=== PATIENT | male | born 1995 | race Caucasian/White ===

== ENCOUNTER 2016-07-11 01:18 | Emergency (ER) | payer SELFPAY ==
[~2016-07-11 01:18] MED LIST: AUGM875T27 PO; IBUP80TA PO; PERCOCET PO; TYLE325T5 PO
[2016-07-11] MEDS ORDERED: ONDANSETRON 4 MG ORAL DISINTEGRATING TAB (S0181) As Ordered ONE (02:20)
[2016-07-11] MEDS ORDERED: AUGMENTIN 875 MG TAB As Ordered ONE (02:20)
[2016-07-11] MEDS ORDERED: NORCO 5/325MG TABLET (BULK) As Ordered ONE (02:21)
--- NOTE | 2016-07-11 02:35 | EDDOCDS ---
[facility]: Ricardo Potter Age: 21 yrs Sex: Male : 1995 Arrival Date: 07/11/2016 Time: 01:18 Bed TR1 Private MD: Disposition: 07/11/16 02:16 Discharged to Home/Self Care. Impression: Dental caries. - Condition is Stable. - Discharge Instructions: Dental Pain. - Prescriptions for Augmentin 875- 125 mg Oral Tablet - take 1 tablet by ORAL route every 12 hours for 10 days; 20 tablet. Ibuprofen 800 mg Oral Tablet - take 1 tablet by ORAL route every 8 hours As needed take with food; 30 tablet. [place] 5- 325 mg Oral Tablet - take 1 tablet by ORAL route every 6 hours As needed MDD: 4 tabs; 6 tablet. - Medication Reconciliation, Local Pharmacy Hours form. - Follow up: Private Physician; When: Call to arrange an appointment; Reason: Recheck today's complaints, Continuance of care. Follow up: Emergency Department; When: As needed; Reason: Fever > 102F, Trouble breathing, Worsening of conditions. - Problem is new. - Symptoms have improved. Historical: - Allergies: No known drug Allergies; - Home Meds: 1. none - PMHx: none; - PSHx: Appendectomy; Tonsillectomy; - Social history: Smoking status: Patient uses tobacco products, current every day smoker. No barriers to communication noted, The patient speaks fluent Burmese. - Family history: Not pertinent. - : The pt / caregiver states he / she is not on anticoagulants. Home medication list is obtained from the patient. - Exposure Risk Screening:: None identified. Vital Signs: 07/11 01:31 BP 178 / 103 LA Sitting (auto/); Pulse 97; Resp 18 S; Temp 98.9(TE); Pulse Ox 97% on af2 R/A; Weight 90.72 kg / 200 lbs (R); Height 5 ft. 11 in. (180.34 cm) (R); Pain 10/10; 02:31 BP 159 / 89; Pulse 86; Resp 16; Temp 97.7(TE); Pulse Ox 96% on R/A; Pain 10/10; rw1 01:31 Body Mass Index 27.89 (90.72 kg, 180.34 cm) af2 MDM: 02:15 Amoxicillin-Clavulanate 875 mg 1 tabs PO once ordered. ar2 02:15 Ondansetron ODT Oral Disintegrating Tablet 4 mg PO once ordered. ar2 02:15 HYDROcodone-acetaminophen 4 pack- 5 mg-325 mg 1 packets PO Per package directions; ar2 Dispense with patient. 1 po q4h prn for pain ordered. 02:33 Financial registration complete. hs2 Administered Medications: 02:30 Drug: Amoxicillin-Clavulanate 1 tabs [amoxicillin 875 mg-potassium clavulanate 125 mg rw1 tablet (1 tabs)] Route: PO; 02:31 Follow up: Response: Pt left department before re-evaluation is appropriate rw1 02:30 Drug: Ondansetron ODT 4 mg [ondansetron 4 mg disintegrating tablet (1 tabs)] Route: PO; rw1 02:31 Follow up: Response: Pt left department before re-evaluation is appropriate rw1 02:30 Drug: HYDROcodone-acetaminophen 4 pack- 1 packets [hydrocodone 5 mg-acetaminophen 325 rw1 mg tablet (1 tabs)] {Co-Signature: guru (Carlos Alberto Vera RN).} Route: PO; 02:31 Follow up: Response: Med's dispensed home rw1 Signatures: Maurice De Oliveira LPN LPN rw1 Russel Flowers, ROSA M PAJuan ar2 Mirna Dickens,RN RN af2 Mary Jane Francisco, Reg Reg hs2 Carlos Alberto garvey MTDD
--- NOTE | 2016-07-11 02:35 | EDDOCDS ---
Nurse's Notes [facility] Name: Ricardo Potter Age: 21 yrs Sex: Male : 1995 Arrival Date: 07/11/2016 Time: 01:18 Bed TR1 Private MD: Diagnosis: Dental caries Presentation: 07/11 01:33 Presenting complaint: Patient states: toothache to right bottom side of mouth. Adult af2 Sepsis Screening: The patient does not have new or worsening altered mentation. Patient's respiratory rate is less than 22. Systolic blood pressure is greater than 100. Patient has a qSOFA score of 0- Negative Sepsis Screen. Suicide/Homicide risk assessment- the patient denies having any suicidal and/or homicidal ideations and does not present with any other emotional, behavioral or mental health complaints. Status: Patient is not a director of women's services or dependent. Transition of care: patient was not received from another setting of care. 01:33 Acuity: CHARMAINE Level 5 af2 01:33 Method Of Arrival: Walkin/Carried/Asstd af2 Triage Assessment: 01:34 General: Appears in no apparent distress, Behavior is cooperative. Pain: Location: face af2 Pain currently is 10 out of 10 on a pain scale. HIV screening NA for this visit Offered previously. EENT: Reports pain right side of face. Historical: - Allergies: No known drug Allergies; - Home Meds: 1. none - PMHx: none; - PSHx: Appendectomy; Tonsillectomy; - Social history: Smoking status: Patient uses tobacco products, current every day smoker. No barriers to communication noted, The patient speaks fluent Greenlandic. - Family history: Not pertinent. - : The pt / caregiver states he / she is not on anticoagulants. Home medication list is obtained from the patient. - Exposure Risk Screening:: None identified. Screenin:31 Screening information is obtained from the patient. Fall risk: No risks identified. rw1 Assistance ADL's: requires no assistance with activities of daily living. Abuse/DV Screen: The patient / caregiver reports he/she is: not in a situation that causes fear, pain or injury. Nutritional screening: No deficits noted. Advance Directives: Currently, there is no health care proxy. home support is adequate. Assessment: 02:31 Reassessment: Patient appears in no apparent distress at this time. given pain meds to rw1 go home. Vital Signs: 01:31 BP 178 / 103 LA Sitting (auto/); Pulse 97; Resp 18 S; Temp 98.9(TE); Pulse Ox 97% on af2 R/A; Weight 90.72 kg (R); Height 5 ft. 11 in. (180.34 cm) (R); Pain 10/10; 02:31 BP 159 / 89; Pulse 86; Resp 16; Temp 97.7(TE); Pulse Ox 96% on R/A; Pain 10/10; rw1 01:31 Body Mass Index 27.89 (90.72 kg, 180.34 cm) af2 Vitals: 01:31 Log In Time: July 11, 2016 at 01:18. af2 ED Course: 01:20 Patient visited by Terrance Taylor, Reg. pm4 01:20 Patient moved to Waiting pm4 01:33 Triage Initiated af2 01:35 Patient visited by Mirna Dickens RN. af2 01:35 Patient moved to [facility] Wait af2 02:00 Patient moved to / [facility] 02:10 Russel Flowers PA-C is PHCP. ar2 02:10 Elio Rodriguez MD is Attending Physician. ar2 02:10 Patient visited by Russel Flowers PA-C. ar2 02:30 Patient visited by Paulo Cota. [facility] 02:31 The patient / caregiver is instructed regarding the plan of care and ED course. rw1 02:31 No IV's were initiated during this patient's visit. No procedures done that require rw1 assistance. 02:34 Patient moved to TR ajs Administered Medications: 02:30 Drug: Amoxicillin-Clavulanate 1 tabs [amoxicillin 875 mg-potassium clavulanate 125 mg rw1 tablet (1 tabs)] Route: PO; 02:31 Follow up: Response: Pt left department before re-evaluation is appropriate rw1 02:30 Drug: Ondansetron ODT 4 mg [ondansetron 4 mg disintegrating tablet (1 tabs)] Route: PO; rw1 02:31 Follow up: Response: Pt left department before re-evaluation is appropriate rw1 02:30 Drug: HYDROcodone-acetaminophen 4 pack- 1 packets [hydrocodone 5 mg-acetaminophen 325 rw1 mg tablet (1 tabs)] {Co-Signature: guru (Carlos Alberto Vera RN).} Route: PO; 02:31 Follow up: Response: Med's dispensed home rw1 Order Results: There are currently no results for this order. Outcome: 02:16 Discharge ordered by Provider. ar2 02:31 Discharge Assessment: Patient awake, alert and oriented x 3. No cognitive and/or rw1 functional deficits noted. Patient verbalized understanding of disposition instructions. patient administered narcotics - yes. Pt provided with safe discharge. The following High Risk Discharge criteria are identified: None. Discharged to home ambulatory, with significant other. Condition: stable. Discharge instructions given to patient, Instructed on discharge instructions, follow up and referral plans. medication usage, no driving heavy equipment, Demonstrated understanding of instructions, medications, Pt was receptive of discharge instructions/ teaching. Prescriptions given X 3. No special radiology studies were completed. Property sent home with patient. 02:34 Patient left the ED. rw1 Signatures: Maurice De Oilveira LPN FRIT MAKER rw1 Russel Flowers PA-C PAJuan ar2 Lora Hayward Chris cjm [place], Amber,RN RN af2 Terrance Taylor, Reg Reg pm4 Carlos Alberto garvey MTDD
--- NOTE | 2016-07-13 03:35 | EDDOCDS ---
Physician Documentation [facility] Name: Ricardo Potter Age: 21 yrs Sex: Male : 1995 Arrival Date: 07/11/2016 Time: 01:18 Bed TR1 Private MD: Disposition: 07/11/16 02:16 Discharged to Home/Self Care. Impression: Dental caries. - Condition is Stable. - Discharge Instructions: Dental Pain. - Prescriptions for Augmentin 875- 125 mg Oral Tablet - take 1 tablet by ORAL route every 12 hours for 10 days; 20 tablet. Ibuprofen 800 mg Oral Tablet - take 1 tablet by ORAL route every 8 hours As needed take with food; 30 tablet. [place] 5- 325 mg Oral Tablet - take 1 tablet by ORAL route every 6 hours As needed MDD: 4 tabs; 6 tablet. - Medication Reconciliation, Local Pharmacy Hours form. - Follow up: Private Physician; When: Call to arrange an appointment; Reason: Recheck today's complaints, Continuance of care. Follow up: Emergency Department; When: As needed; Reason: Fever > 102F, Trouble breathing, Worsening of conditions. - Problem is new. - Symptoms have improved. Historical: - Allergies: No known drug Allergies; - Home Meds: 1. none - PMHx: none; - PSHx: Appendectomy; Tonsillectomy; - Social history: Smoking status: Patient uses tobacco products, current every day smoker. No barriers to communication noted, The patient speaks fluent [place] Verdean. - Family history: Not pertinent. - : The pt / caregiver states he / she is not on anticoagulants. Home medication list is obtained from the patient. - Exposure Risk Screening:: None identified. Vital Signs: 07/11 01:31 BP 178 / 103 LA Sitting (auto/); Pulse 97; Resp 18 S; Temp 98.9(TE); Pulse Ox 97% on af2 R/A; Weight 90.72 kg / 200 lbs (R); Height 5 ft. 11 in. (180.34 cm) (R); Pain 10/10; 02:31 BP 159 / 89; Pulse 86; Resp 16; Temp 97.7(TE); Pulse Ox 96% on R/A; Pain 10/10; rw1 01:31 Body Mass Index 27.89 (90.72 kg, 180.34 cm) af2 MDM: 02:15 Amoxicillin-Clavulanate 875 mg 1 tabs PO once ordered. ar2 02:15 Ondansetron ODT Oral Disintegrating Tablet 4 mg PO once ordered. ar2 02:15 HYDROcodone-acetaminophen 4 pack- 5 mg-325 mg 1 packets PO Per package directions; ar2 Dispense with patient. 1 po q4h prn for pain ordered. 02:33 Financial registration complete. hs2 02:43 [facility] Payment Agreement was scanned into [employer] and attached to record. hs2 14:46 T-Sheet-- Draft Copy was scanned into [employer] and attached to record. gb Administered Medications: 02:30 Drug: Amoxicillin-Clavulanate 1 tabs [amoxicillin 875 mg-potassium clavulanate 125 mg rw1 tablet (1 tabs)] Route: PO; 02:31 Follow up: Response: Pt left department before re-evaluation is appropriate rw1 02:30 Drug: Ondansetron ODT 4 mg [ondansetron 4 mg disintegrating tablet (1 tabs)] Route: PO; rw1 02:31 Follow up: Response: Pt left department before re-evaluation is appropriate rw1 02:30 Drug: HYDROcodone-acetaminophen 4 pack- 1 packets [hydrocodone 5 mg-acetaminophen 325 rw1 mg tablet (1 tabs)] {Co-Signature: guru (Carlos Alberto Vera RN).} Route: PO; 02:31 Follow up: Response: Med's dispensed home rw1 Signatures: Madiha Moore, Reg Reg gb Maurice De Oliveira,CENTRIFUGAL SCREEN TENDER CENTRIFUGAL SCREEN TENDER rw1 Russel Flowers PA-C PAJuan ar2 Mirna Dickens,RN RN af2 Mary Jane Francisco, Reg Reg hs2 Carlos Alberto garvey The chart was reviewed and I authenticate all verbal orders and agree with the evaluation and treatment provided.Attachments: 02:43 [facility] Payment Agreement hs2 14:46 T-Sheet-- Draft Copy gb Chart Complete MTDD
--- NOTE | 2016-07-13 03:35 | EDDOCDS ---
Physician Documentation [facility] Name: Ricardo Potter Age: 21 yrs Sex: Male : 1995 Arrival Date: 07/11/2016 Time: 01:18 Bed TR1 Private MD: Disposition: 07/11/16 02:16 Discharged to Home/Self Care. Impression: Dental caries. - Condition is Stable. - Discharge Instructions: Dental Pain. - Prescriptions for Augmentin 875- 125 mg Oral Tablet - take 1 tablet by ORAL route every 12 hours for 10 days; 20 tablet. Ibuprofen 800 mg Oral Tablet - take 1 tablet by ORAL route every 8 hours As needed take with food; 30 tablet. [place] 5- 325 mg Oral Tablet - take 1 tablet by ORAL route every 6 hours As needed MDD: 4 tabs; 6 tablet. - Medication Reconciliation, Local Pharmacy Hours form. - Follow up: Private Physician; When: Call to arrange an appointment; Reason: Recheck today's complaints, Continuance of care. Follow up: Emergency Department; When: As needed; Reason: Fever > 102F, Trouble breathing, Worsening of conditions. - Problem is new. - Symptoms have improved. Historical: - Allergies: No known drug Allergies; - Home Meds: 1. none - PMHx: none; - PSHx: Appendectomy; Tonsillectomy; - Social history: Smoking status: Patient uses tobacco products, current every day smoker. No barriers to communication noted, The patient speaks fluent Marshallese. - Family history: Not pertinent. - : The pt / caregiver states he / she is not on anticoagulants. Home medication list is obtained from the patient. - Exposure Risk Screening:: None identified. Vital Signs: 07/11 01:31 BP 178 / 103 LA Sitting (auto/); Pulse 97; Resp 18 S; Temp 98.9(TE); Pulse Ox 97% on af2 R/A; Weight 90.72 kg / 200 lbs (R); Height 5 ft. 11 in. (180.34 cm) (R); Pain 10/10; 02:31 BP 159 / 89; Pulse 86; Resp 16; Temp 97.7(TE); Pulse Ox 96% on R/A; Pain 10/10; rw1 01:31 Body Mass Index 27.89 (90.72 kg, 180.34 cm) af2 MDM: 02:15 Amoxicillin-Clavulanate 875 mg 1 tabs PO once ordered. ar2 02:15 Ondansetron ODT Oral Disintegrating Tablet 4 mg PO once ordered. ar2 02:15 HYDROcodone-acetaminophen 4 pack- 5 mg-325 mg 1 packets PO Per package directions; ar2 Dispense with patient. 1 po q4h prn for pain ordered. 02:33 Financial registration complete. hs2 02:43 [facility] Payment Agreement was scanned into [employer] and attached to record. hs2 14:46 T-Sheet-- Draft Copy was scanned into [employer] and attached to record. gb Administered Medications: 02:30 Drug: Amoxicillin-Clavulanate 1 tabs [amoxicillin 875 mg-potassium clavulanate 125 mg rw1 tablet (1 tabs)] Route: PO; 02:31 Follow up: Response: Pt left department before re-evaluation is appropriate rw1 02:30 Drug: Ondansetron ODT 4 mg [ondansetron 4 mg disintegrating tablet (1 tabs)] Route: PO; rw1 02:31 Follow up: Response: Pt left department before re-evaluation is appropriate rw1 02:30 Drug: HYDROcodone-acetaminophen 4 pack- 1 packets [hydrocodone 5 mg-acetaminophen 325 rw1 mg tablet (1 tabs)] {Co-Signature: guru (Carlos Alberto Vera RN).} Route: PO; 02:31 Follow up: Response: Med's dispensed home rw1 Signatures: Madiha Moore, Reg Reg gb Maurice De Oliveira,PATROL POLICE SERGEANT PATROL POLICE SERGEANT rw1 Russel Flowers PA-C PAJuan ar2 Mirna Dickens,RN RN af2 Mary Jane Francisco, Reg Reg hs2 Carlos Alberto garvey The chart was reviewed and I authenticate all verbal orders and agree with the evaluation and treatment provided.Attachments: 02:43 [facility] Payment Agreement hs2 14:46 T-Sheet-- Draft Copy gb Chart Complete MTDD
--- NOTE | 2016-07-13 03:35 | EDDOCDS ---
Nurse's Notes [facility] Name: Ricardo Potter Age: 21 yrs Sex: Male : 1995 Arrival Date: 07/11/2016 Time: 01:18 Bed TR1 Private MD: Diagnosis: Dental caries Presentation: 07/11 01:33 Presenting complaint: Patient states: toothache to right bottom side of mouth. Adult af2 Sepsis Screening: The patient does not have new or worsening altered mentation. Patient's respiratory rate is less than 22. Systolic blood pressure is greater than 100. Patient has a qSOFA score of 0- Negative Sepsis Screen. Suicide/Homicide risk assessment- the patient denies having any suicidal and/or homicidal ideations and does not present with any other emotional, behavioral or mental health complaints. Status: Patient is not a in service educator or dependent. Transition of care: patient was not received from another setting of care. 01:33 Acuity: CHARMAINE Level 5 af2 01:33 Method Of Arrival: Walkin/Carried/Asstd af2 Triage Assessment: 01:34 General: Appears in no apparent distress, Behavior is cooperative. Pain: Location: face af2 Pain currently is 10 out of 10 on a pain scale. HIV screening NA for this visit Offered previously. EENT: Reports pain right side of face. Historical: - Allergies: No known drug Allergies; - Home Meds: 1. none - PMHx: none; - PSHx: Appendectomy; Tonsillectomy; - Social history: Smoking status: Patient uses tobacco products, current every day smoker. No barriers to communication noted, The patient speaks fluent Faroese. - Family history: Not pertinent. - : The pt / caregiver states he / she is not on anticoagulants. Home medication list is obtained from the patient. - Exposure Risk Screening:: None identified. Screenin:31 Screening information is obtained from the patient. Fall risk: No risks identified. rw1 Assistance ADL's: requires no assistance with activities of daily living. Abuse/DV Screen: The patient / caregiver reports he/she is: not in a situation that causes fear, pain or injury. Nutritional screening: No deficits noted. Advance Directives: Currently, there is no health care proxy. home support is adequate. Assessment: 02:31 Reassessment: Patient appears in no apparent distress at this time. given pain meds to rw1 go home. Vital Signs: 01:31 BP 178 / 103 LA Sitting (auto/); Pulse 97; Resp 18 S; Temp 98.9(TE); Pulse Ox 97% on af2 R/A; Weight 90.72 kg (R); Height 5 ft. 11 in. (180.34 cm) (R); Pain 10/10; 02:31 BP 159 / 89; Pulse 86; Resp 16; Temp 97.7(TE); Pulse Ox 96% on R/A; Pain 10/10; rw1 01:31 Body Mass Index 27.89 (90.72 kg, 180.34 cm) af2 Vitals: 01:31 Log In Time: July 11, 2016 at 01:18. af2 ED Course: 01:20 Patient visited by Terrance Taylor, Reg. pm4 01:20 Patient moved to Waiting pm4 01:33 Triage Initiated af2 01:35 Patient visited by Mirna Dickens RN. af2 01:35 Patient moved to [facility] Wait af2 02:00 Patient moved to I5 / ajs 02:10 Russel Flowers PA-C is PHCP. ar2 02:10 Elio Rodriguez MD is Attending Physician. ar2 02:10 Patient visited by Russel Flowers PA-C. ar2 02:30 Patient visited by Paulo Cota. [facility] 02:31 The patient / caregiver is instructed regarding the plan of care and ED course. rw1 02:31 No IV's were initiated during this patient's visit. No procedures done that require rw1 assistance. 02:34 Patient moved to TR1 ajs 02:43 [facility] Payment Agreement was scanned into [employer] and attached to record. hs2 14:46 T-Sheet-- Draft Copy was scanned into [employer] and attached to record. gb Administered Medications: 02:30 Drug: Amoxicillin-Clavulanate 1 tabs [amoxicillin 875 mg-potassium clavulanate 125 mg rw1 tablet (1 tabs)] Route: PO; 02:31 Follow up: Response: Pt left department before re-evaluation is appropriate rw1 02:30 Drug: Ondansetron ODT 4 mg [ondansetron 4 mg disintegrating tablet (1 tabs)] Route: PO; rw1 02:31 Follow up: Response: Pt left department before re-evaluation is appropriate rw1 02:30 Drug: HYDROcodone-acetaminophen 4 pack- 1 packets [hydrocodone 5 mg-acetaminophen 325 rw1 mg tablet (1 tabs)] {Co-Signature: guru (Carlos Alberto Vera RN).} Route: PO; 02:31 Follow up: Response: Med's dispensed home rw1 Order Results: There are currently no results for this order. Outcome: 02:16 Discharge ordered by Provider. ar2 02:31 Discharge Assessment: Patient awake, alert and oriented x 3. No cognitive and/or rw1 functional deficits noted. Patient verbalized understanding of disposition instructions. patient administered narcotics - yes. Pt provided with safe discharge. The following High Risk Discharge criteria are identified: None. Discharged to home ambulatory, with significant other. Condition: stable. Discharge instructions given to patient, Instructed on discharge instructions, follow up and referral plans. medication usage, no driving heavy equipment, Demonstrated understanding of instructions, medications, Pt was receptive of discharge instructions/ teaching. Prescriptions given X 3. No special radiology studies were completed. Property sent home with patient. 02:34 Patient left the ED. rw1 Signatures: Madiha Moore, Reg Reg gb Yennifer,Maurice,AUDIT DIRECTOR AUDIT DIRECTOR rw1 Russel Flowers, PAJuan PA-C ar2 Lora Hayward Chris cjm F[place]on, AmberRN RN af2 Mary Jane Francisco, Reg Reg hs2 Terrance Taylor, Reg Reg pm4 Carlos Alberto garvey Chart Complete MTDD
== END 2016-07-11 02:34 | disposition home or self-care (01) ==
LOC: M ED 01:18
DX: K02.9 Dental caries, unspecified (principal); F17.200 Nicotine dependence, unspecified, uncomplicated

== ENCOUNTER 2016-08-22 15:46 | Emergency (ER) | payer OTHER, SELFPAY ==
[~2016-08-22] VITALS: Ht 177.8 cm; Wt 90.7 kg
[2016-08-22] MEDS ORDERED: BIRTH CONTROL PATCH (15:54)
[2016-08-22] MEDS ORDERED: IBUP200C PO (18:15)
[2016-08-22] MEDS ORDERED: NAPR500T PO (18:21)
[2016-08-22] MEDS ORDERED: NORCOTAB PO (18:21)
[2016-08-22] MEDS ORDERED: AUGM875T27 PO (18:21)
[2016-08-22 18:29] VITALS: BP 165/87
[2016-08-22] MEDS ORDERED: PERCOCET 5MG/325MG TAB PO ONE (18:30)
[2016-08-22] MEDS ORDERED: AUGMENTIN 875 MG TAB PO ONE (18:30)
== END 2016-08-22 18:32 | disposition home or self-care (01) ==
LOC: M ED 16:51
DX: K04.7 Periapical abscess without sinus (principal); K02.9 Dental caries, unspecified; F17.210 Nicotine dependence, cigarettes, uncomplicated; Z79.1 Long term (current) use of non-steroidal anti-inflammatories (NSAID)

== ENCOUNTER 2017-01-25 22:58 | Emergency (ER) | payer BC, OTHER, SELFPAY ==
[~2017-01-25] VITALS: Ht 172.7 cm; Wt 90.9 kg
[~2017-01-25 22:58] MED LIST changes: -AUGM875T27 PO; +AUGM875T28 PO; +BIRTH CONTROL PATCH; +IBUP200C10 PO; +NAPR500T PO; +NORCOTAB PO
[2017-01-25 22:59] VITALS: BP 136/73
[2017-01-25] MEDS ORDERED: CARISOPRODOL 350 MG TAB PO ONE (23:30)
[2017-01-25] MEDS ORDERED: NAPROXEN 250 MG TAB PO ONE (23:30)
[2017-01-25] MEDS ORDERED: CYCL10TA PO (23:31)
[2017-01-25] MEDS ORDERED: NAPR500T PO (23:31)
== END 2017-01-25 23:51 | disposition home or self-care (01) ==
LOC: M ED 22:58
DX: S39.012A Strain of muscle, fascia and tendon of lower back, initial encounter (principal); W22.8XXA Striking against or struck by other objects, initial encounter; Y92.9 Unspecified place or not applicable; Y93.9 Activity, unspecified; Y99.0 Civilian activity done for income or pay; F17.200 Nicotine dependence, unspecified, uncomplicated

== ENCOUNTER 2017-04-22 12:33 | Emergency (ER) | payer MEDICAID, SELFPAY ==
[~2017-04-22] VITALS: Ht 172.7 cm; Wt 81.8 kg
[2017-04-22 12:33] VITALS: BP 142/74
[~2017-04-22 12:33] MED LIST changes: +CYCL10TA PO
[2017-04-22] MEDS ORDERED: TYLE500T78 PO (12:43)
[2017-04-22] MEDS ORDERED: SKEL800T97 PO (13:34)
[2017-04-22] MEDS ORDERED: NAPR500T PO (13:34)
== END 2017-04-22 14:13 | disposition home or self-care (01) ==
LOC: M ED 12:33
DX: M54.5 Low back pain (principal); F17.210 Nicotine dependence, cigarettes, uncomplicated

== ENCOUNTER 2017-11-12 21:24 | Emergency (ER) | payer MEDICAID, OTHER ==
[2017-11-12] MEDS: LIDOCAINE W/EPINEPHRINE 1% 20ML VIAL SC ×2 (23:39)
[2017-11-12] MEDS: CETACAINE SPRAY 5GM TOP ×2 (23:39)
== END 2017-11-13 00:13 | disposition home or self-care (01) ==
LOC: M ED 21:24
DX: K08.89 Other specified disorders of teeth and supporting structures (principal)
CPT/HCPCS: 64400; 99283

== ENCOUNTER 2018-02-09 22:30 | Emergency (ER) | payer OTHER ==
[2018-02-09] MEDS: NORCO, ANEXSIA 5/325MG TABLET (HYDROcodone/ACETAMINOPHEN) PO (23:32)
== END 2018-02-10 00:19 | disposition home or self-care (01) ==
LOC: M ED 02-10 00:19
DX: S76.311A Strain of muscle, fascia and tendon of the posterior muscle group at thigh level, right thigh, initial encounter (principal); X50.1XXA Overexertion from prolonged static or awkward postures, initial encounter; Y92.89 Other specified places as the place of occurrence of the external cause; Y93.9 Activity, unspecified; Y99.9 Unspecified external cause status; Z72.0 Tobacco use
CPT/HCPCS: 73564

== ENCOUNTER 2018-11-02 20:06 | Emergency (ER) | payer OTHER ==
[~2018-11-02] VITALS: Ht 175.3 cm; Wt 90.9 kg
[~2018-11-02 20:06] MED LIST changes: +ACET-683 PO; +CLEO300C2 PO; +DICL75TA PO; +HYDR-3713; +HYDR-3715 PO; -IBUP200C10 PO; +IBUP200C25 PO; +IBUP80TA; +NAPR-837 PO; -NAPR500T PO; -NORCOTAB PO; +SKEL800T97 PO; +TYLE500T78 PO
[2018-11-02 21:39] LABS: APPEARANCE, URINE CLEAR (CLEAR); BACTERIA, URINE AUTO NEGATIVE (NEGATIVE); BILIRUBIN, URINE AUTO NEGATIVE (NEGATIVE); BLOOD, URINE BLOOD NEGATIVE (NEGATIVE); COLOR, URINE YELLOW (YELLOW); GLUCOSE, URINE (UA) AUTO NEGATIVE (NEGATIVE); KETONE, URINE AUTO NEGATIVE (NEGATIVE); LEUKOCYTE ESTERASE, URINE AUTO NEGATIVE (NEGATIVE); NITRITE, URINE AUTO NEGATIVE (NEGATIVE); PROTEIN, URINE AUTO NEGATIVE (NEGATIVE); RBC, URINE AUTO 1 /HPF (0-3); SPECIFIC GRAVITY URINE AUTO 1.019 (1.002-1.035); SQUAMOUS EPITHELIAL CELL UR AU 0 /HPF (0-6); UROBILINOGEN, URINE AUTO 0.2 mg/dL (0.0-2.0); WBC, URINE AUTO 0 /HPF (0-3)
--- NOTE | 2018-11-02 21:41 | REPVR ---
EXAM: US Scrotum and US Duplex Artery and Vein, Scrotum, Complete EXAM DATE/TIME: 11/02/2018 9:12 PM CLINICAL HISTORY: 23 years old, male; Scrotum pain; Additional info: R testicle pain TECHNIQUE: Imaging protocol: Real-time ultrasound of the scrotum. Real-time duplex ultrasound scan of the arterial and venous flow of the scrotum with B-mode, color Doppler flow and spectral waveform analysis. Complete exam. COMPARISON: No relevant prior studies available. FINDINGS: Right Testicle: Normal. No mass. No torsion. The right testicle measures 1.9 x 2.8 x 3.1 cm. There is normal color flow with normal spectral Doppler waveforms. Left Testicle: Normal. No mass. No torsion. The left testicle measures 4.8 x 3.0 x 2.9 cm. There is normal color flow with normal spectral Doppler waveforms. Epididymides: Normal. Scrotum: Normal. IMPRESSION: Normal scrotal ultrasound. No torsion. Electronically signed by: Summer Dodson On 11/02/2018 21:41:23 PM
[2018-11-02 22:06] VITALS: BP 142/78
[2018-11-03 00:14] LABS: CHLAMYDIA DNA AMPLIFICATION NEGATIVE (NEGATIVE); GC DNA AMPLIFICATION NEGATIVE (NEGATIVE)
== END 2018-11-02 22:10 | disposition home or self-care (01) ==
LOC: M ED 20:06
DX: N50.811 Right testicular pain (principal); R10.30 Lower abdominal pain, unspecified; Z72.0 Tobacco use

== ENCOUNTER → 2019-11-22 | Outpatient (CLI) | payer OTHER ==
[~2019-11-22] MED LIST changes: +CYCL-707 PO; -CYCL10TA PO; +IBUP-1114 PO
--- NOTE | 2019-11-23 02:01 | REP ---
REASON: Asses for foreign body. Two views were obtained. FINDINGS: No acute fracture or destructive osseous lesion. There is no evidence of a radiopaque foreign body. Electronically Signed by Marcial Scruggs DO 11/23/2019 11:09 A
== END ==
LOC: M WUC 14:49
PROVIDERS: ATTEND Nurse Practitioner Family
DX: S51.811S Laceration without foreign body of right forearm, sequela (principal); X58.XXXD Exposure to other specified factors, subsequent encounter; Y92.9 Unspecified place or not applicable

== ENCOUNTER 2020-01-04 13:42 | Emergency (ER) | payer OTHER ==
[~2020-01-04] VITALS: Ht 177.8 cm; Wt 113.0 kg
--- NOTE | 2020-01-04 14:27 | REP ---
Clinical: Cough and dyspnea . Comparison: None . Findings: The mediastinum and cardiac silhouette are stable and within normal limits for portable technique. The lung caraballo are clear without acute consolidation, effusion, or pneumothorax. Skeletal structures are intact. Impression: No acute cardiopulmonary process appreciated. Electronically Signed by Larry Duffy MD 01/04/2020 02:18 P
[2020-01-04] MEDS ORDERED: COMBIVENT RESPIMAT 100-20MCG INHALER 4GM INH STA (15:03)
[2020-01-04 15:08] LABS: VENOUS BASE EXCESS -1.1 (-2.0-2.0); VENOUS HCO3 25.3 MEQ/L (23.0-27.0); VENOUS O2 SATURATION 74.5 % (60.0-80.0); VENOUS PARTIAL PRESSURE CO2 48.3 mmHg (38.0-50.0); VENOUS PARTIAL PRESSURE O2 38.1 mmHg (30.0-50.0); VENOUS PH 7.337 UNITS (7.330-7.430); VENOUS STANDARD HCO3 22.9 MEQ/L; VENOUS TOTAL CO2 26.8 MEQ/L (24.0-28.0)
[2020-01-04] MEDS ORDERED: BUPR150T5 (15:11)
[2020-01-04 15:26] LABS: BASO # 0.1 10^3/uL (0.0-0.2); BASO % 0.9 % (0.0-1.0); EOS # 0.1 10^3/uL (0.0-0.5); EOS % 1.3 % (0.0-3.0); HEMATOCRIT 47.5 % (42.0-52.0); LYMPH # 2.1 10^3/uL (1.5-5.0); LYMPH % 24.1 % (24.0-44.0); MEAN CORPUSCULAR HEMOGLOBIN 29.4 pg (27.0-33.0); MEAN CORPUSCULAR HGB CONC 33.7 g/dl (32.0-36.5); MEAN CORPUSCULAR VOLUME 87.2 fl (80.0-96.0); MONO % 11.2 % (0.0-5.0); NEUTROPHILS # 5.5 10^3/uL (1.5-8.5); PLATELET COUNT, AUTOMATED 266 10^3/uL (150-450); RED BLOOD COUNT 5.45 10^6/uL (4.30-6.10); WHITE BLOOD COUNT 8.8 10^3/uL (4.0-10.0)
[2020-01-04 15:46] LABS: ALBUMIN 4.1 GM/DL (3.2-5.2); ALT/SGPT 48 U/L (12-78); BILIRUBIN,DIRECT 0.1 MG/DL (0.0-0.2); BILIRUBIN,TOTAL 0.2 MG/DL (0.2-1.0); CK-MB VALUE MASS 2.1 NG/ML (<3.6); CPK CREATINE PHOSPHOKINASE 241 U/L (39-308); MB/CK RELATIVE INDEX 0.87 (< OR =4); NT-PRO BNP 8 PG/ML (<125); THYROXINE (T4) 8.2 UG/DL (4.5-12.0); TOTAL PROTEIN 7.6 GM/DL (6.4-8.2); TROPONIN I < 0.02 NG/ML (< 0.10)
[2020-01-04 16:21] LABS: BLOOD UREA NITROGEN 13 MG/DL (7-18); CALCIUM LEVEL 8.9 MG/DL (8.5-10.1); CARBON DIOXIDE LEVEL 27 MEQ/L (21-32); CHLORIDE LEVEL 108 MEQ/L (98-107); CREATININE FOR GFR 0.91 MG/DL (0.70-1.30); GLOMERULAR FILTRATION RATE > 60.0 (>60); GLUCOSE, FASTING 95 MG/DL (70-100); POTASSIUM SERUM 4.3 MEQ/L (3.5-5.1); SODIUM LEVEL 141 MEQ/L (136-145)
--- NOTE | 2020-01-04 17:59 | ECGEPIP ---
[facility] - ED Test Date: 2020-01-04 Pat Name: DARIEL KERNS Department: Room: - Gender: Male Sales Management Intern: : 1995 Requested By: Elio Winn Order Number: [id number] Reading MD: Brooke Monte Measurements Intervals [place] Rate: 81 P: 27 [place]: 155 QRS: -3 QRSD: 102 T: 19 QT: 368 QTc: 429 Interpretive Statements SINUS RHYTHM NO PRIOR Electronically Signed on 01-04-2020 17:59:23 EDT by Brooke Monte
[2020-01-04 18:00] VITALS: BP 138/85
[2020-01-04] MEDS ORDERED: VENTAER INH (18:30)
[2020-01-04] MEDS ORDERED: MUCI1TAB16 PO (18:30)
== END 2020-01-04 18:55 | disposition home or self-care (01) ==
LOC: M ED 13:42
DX: J06.9 Acute upper respiratory infection, unspecified (principal); B34.9 Viral infection, unspecified; Z11.59 Encounter for screening for other viral diseases; F17.210 Nicotine dependence, cigarettes, uncomplicated; Z79.51 Long term (current) use of inhaled steroids; Z79.899 Other long term (current) drug therapy

== ENCOUNTER → 2020-01-29 | Outpatient (CLI) | payer OTHER ==
[~2020-01-29] MED LIST changes: +BUPR150T5; +MUCI1TAB16 PO; +VENTAER INH
--- NOTE | 2020-03-09 07:13 | REP ---
RIGHT KNEE SERIES: 5 VIEWS HISTORY: Twisting injury and pain after a fall. COMPARISON: Knee radiographs 02/09/2018. FINDINGS: Five views of the right knee demonstrate a small stable benign osteochondroma projecting posteriorly from the proximal fibular metaphysis. This is unchanged. There is no evidence of fracture or subluxation. There is no evidence of joint effusion. A bone island is seen in the medial femoral condyle also unchanged. IMPRESSION: No acute bony abnormality. Proximal fibular osteochondroma again noted unchanged. MTDD
== END ==
LOC: M WUC 11:21
PROVIDERS: ATTEND Physician Assistant
DX: M25.561 Pain in right knee (principal); D16.21 Benign neoplasm of long bones of right lower limb

== ENCOUNTER → 2020-05-24 | Outpatient (CLI) | payer OTHER | LOC: M LABSMTC 12:59 | PROVIDERS: ATTEND Anesthesiology | DX: Z01.812 Encounter for preprocedural laboratory examination (principal) ==

== ENCOUNTER 2020-05-28 19:36 | Emergency (ER) | payer OTHER ==
[~2020-05-28] VITALS: Ht 177.8 cm; Wt 104.5 kg
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
[2020-05-28 21:45] VITALS: BP 140/80
== END 2020-05-28 21:46 | disposition home or self-care (01) ==
LOC: M ED 19:36
DX: S00.33XA Contusion of nose, initial encounter (principal); S00.12XA Contusion of left eyelid and periocular area, initial encounter; M25.562 Pain in left knee; Y04.8XXA Assault by other bodily force, initial encounter; Y92.59 Other trade areas as the place of occurrence of the external cause; Y93.9 Activity, unspecified; Y99.9 Unspecified external cause status; F17.200 Nicotine dependence, unspecified, uncomplicated

== ENCOUNTER → 2020-06-06 | Outpatient (CLI) | payer OTHER ==
--- NOTE | 2020-06-07 10:52 | REP ---
INDICATION: PAIN IN LEFT KNEE. COMPARISON: Plain films 05/28/2020. TECHNIQUE: Multiple sequences obtained in the axial, coronal and sagittal planes. FINDINGS: Menisci: Intact, no tear. Cruciate ligaments: There is high-grade tear of the anterior cruciate ligament. The posterior cruciate ligament is intact. Collateral ligaments: Intact. Extensor mechanism/patellar retinacula: Intact. Cartilage: There is [id number] cartilaginous thinning of the lateral femoral condyle at the weight-bearing surface. Adjacent bone marrow edema in the lateral femoral condyle consistent with bone bruising. Bone marrow: Bone marrow edema in the lateral femoral condyle and posterior tibial plateaus compatible with bone bruises. Joint fluid: There is a large joint effusion. Popliteal region: Mild edema. IMPRESSION: The anterior cruciate ligament demonstrates a high-grade tear. The collateral ligaments are intact. No meniscal tear is seen. There is bone bruising of the lateral femoral condyle and the posterior aspect of the tibial plateaus. Large joint effusion. <Electronically signed by Cameron Barger > 06/07/20 104
== END ==
LOC: M RAD 18:00
PROVIDERS: ATTEND Orthopaedic Surgery Sports Medicine
DX: M25.562 Pain in left knee (principal); M79.605 Pain in left leg

== ENCOUNTER 2020-06-15 03:44 | Emergency (ER) | payer OTHER ==
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
[2020-06-15] MEDS ORDERED: KETOROLAC 60MG 2ML VIAL IM ONE (05:15)
[2020-06-15] MEDS ORDERED: MORPHINE 2 MG/ML 1ML VIAL (J2270) IV ONE (05:45)
[2020-06-15] MEDS ORDERED: MORPHINE 4 MG/ML 1ML VIAL/SYRINGE (J2270) IV ONE (06:45)
[2020-06-15 07:46] VITALS: BP 118/57
== END 2020-06-15 07:44 | disposition left against medical advice (07) ==
LOC: M ED 03:44
DX: M25.461 Effusion, right knee (principal); Z53.20 Procedure and treatment not carried out because of patient's decision for unspecified reasons
CPT/HCPCS: 73564; 96372; 96374; 96375; 99283; J1885; J2270

== ENCOUNTER → 2020-06-19 | Outpatient (CLI) | payer OTHER ==
--- NOTE | 2020-06-20 08:26 | REP ---
INDICATION: RIGHT KNEE SUNRISE VIEW ONLY. Single sunrise radiograph right knee COMPARISON: Comparison right knee radiographs are from June 15, 2020.. TECHNIQUE: Single-view sunrise radiograph. FINDINGS: [place] view shows normal alignment. No fracture is visible. IMPRESSION: Single sunrise view. No acute bony abnormality. <Electronically signed by Khari Horan > 06/19/20 [id number]
== END ==
LOC: M SOG 09:39
PROVIDERS: ATTEND Orthopaedic Surgery Sports Medicine
DX: M25.561 Pain in right knee (principal)

== ENCOUNTER 2020-07-10 09:15 | Outpatient (RCR) | payer OTHER | END 2020-07-16 | LOC: M PT 09:15 | PROVIDERS: ATTEND Orthopaedic Surgery Sports Medicine | DX: S83.011A Lateral subluxation of right patella, initial encounter (principal); S83.512A Sprain of anterior cruciate ligament of left knee, initial encounter; M23.51 Chronic instability of knee, right knee ==

== ENCOUNTER → 2020-07-25 | Outpatient (CLI) | payer OTHER ==
--- NOTE | 2020-07-25 11:39 | REP ---
INDICATION: LATERAL SUBLUXATION OF RT PATELLA. COMPARISON: Comparison radiographs are from June 15, 2020 and June 19, 2020.. TECHNIQUE: Axial, coronal, and sagittal imaging planes utilized. T1, proton density and T2 weighted scans are obtained with and without fat saturation in the usual fashion. FINDINGS: Cortical and medullary bone signal intensity are normal. There is a fairly large joint effusion and a Bailey's cyst is seen in the posterior popliteal soft tissues measuring 6.7 cm in craniocaudal length. There is soft tissue swelling and edema along the anteromedial aspect of the knee in the extra articular soft tissues. There is heterogeneous thickening and discontinuity apparent in the medial patellar retinaculum. The patella is slightly lateral in its position on a very shallow trochlear notch. There is mild heterogeneous increased signal intensity in the central patellar articular cartilage with early fraying, chondromalacia. No patellar fracture is appreciated. No fracture is appreciated in the lateral femoral condyle region. There is redundant synovium in the Bailey's cyst. No visible loose body. Patellar and quadriceps tendons appear intact. The posterior cruciate ligament has an intact appearance. The anterior cruciate ligament is disrupted. There is no evidence of medial or lateral collateral ligament disruption. No medial or lateral meniscal tear is appreciated. No other articular cartilage lesion is seen. IMPRESSION: 1. There is evidence of disruption of the medial patellar retinaculum and somewhat lateral position of the patella on a shallow trochlear groove. 2. Fairly large joint effusion with Bailey's cyst. 3. Soft tissue contusions/edema evident in the anteromedial extra-articular soft tissues. 4. Central mild patellar chondromalacia. 5. Complete tear ACL. <Electronically signed by Khari Horan > 07/25/20 [id number]
== END ==
LOC: M RAD 10:40
PROVIDERS: ATTEND Orthopaedic Surgery Sports Medicine
DX: S83.011A Lateral subluxation of right patella, initial encounter (principal); S83.511A Sprain of anterior cruciate ligament of right knee, initial encounter; X58.XXXA Exposure to other specified factors, initial encounter; Y92.9 Unspecified place or not applicable; Y93.9 Activity, unspecified; Y99.9 Unspecified external cause status; M71.20 Synovial cyst of popliteal space [Baker], unspecified knee; M22.41 Chondromalacia patellae, right knee

== ENCOUNTER → 2020-08-04 | Outpatient (CLI) | payer OTHER | LOC: M LABSMTC 10:29 | PROVIDERS: ATTEND Anesthesiology | DX: Z01.812 Encounter for preprocedural laboratory examination (principal); Z20.822 Contact with and (suspected) exposure to COVID-19 ==

== ENCOUNTER 2020-08-07 15:15 | Outpatient (RCR) | payer OTHER | END 2020-08-13 | LOC: M PT 15:15 | PROVIDERS: ATTEND Orthopaedic Surgery Sports Medicine | DX: S83.011A Lateral subluxation of right patella, initial encounter (principal); S83.512A Sprain of anterior cruciate ligament of left knee, initial encounter; M23.51 Chronic instability of knee, right knee; X58.XXXA Exposure to other specified factors, initial encounter; Y92.9 Unspecified place or not applicable; Y99.9 Unspecified external cause status ==

== ENCOUNTER 2020-08-09 09:17 | Day surgery (SDC) | payer OTHER ==
[~2020-08-09] VITALS: Ht 177.8 cm; Wt 121.6 kg
[~2020-08-09 09:17] MED LIST changes: +LIDOCAINE 1% MDV 20ML VIAL SQ PRN; +LR 1,000 ML IV ONE; +MIDAZOLAM INJ 2MG/2ML VIAL (J2250 PER 1MG) IV PRN; +ceFAZolin SOD 2 GM in IV 1 EA IV ONE; +fentaNYL 100 MCG/2 ML INJECTION (J3010) IV PRN
--- OUTSIDE RECORDS SUMMARY | 2020-08-09 09:21 | CCD | Continuity of Care Document ---
Author Author Ricardo ROSE MD Organization Unknown Address [address] [place] [address], [address] [place] [address] Phone [phone] Care Team Providers Care Geographic Information Systems Engineer Name Role Phone AUTM Unavailable Jenn Petty N.P. AUTM [phone] Problems Description No Information Available Social History Type Date Description Comments Sex Unknown Allergies, Adverse Reactions, Alerts Description No Known Drug Allergies Medications Active Medications SIG Qnty Indications Ordering Provide r Date No Active Medications Unknown 09/2020 History Medications Oxycodone-Acetaminophen 5-325mg Ta blets 1- 2 tabs po q4-6h prn / post surgical pain(please do not fill until 05/29/2020) 30tabs Micky Rose MD 05/22/2020 - 021 Immunizations Description No Information Available Vital Signs Date Vital Result Comment 06/19/2020 9:21am Body Temperature 96.0 F Height 70.5 inches 5'10.50" Weight 263.50 lb BMI (Body Mass Index) 37.3 kg/m2 [place] Body Weight 166 lb Weight 119.524 kg BSA (Body Surface Area) 2.36 m2 04/07/2020 10:51am Body Temperature 96.9 F Height 70 inches 5'10" Weight 200.00 lb BMI (Body Mass Index) 28.7 kg/m2 [place] Body Weight 166 lb Weight 90.720 kg BSA (Body Surface Area) 2.09 m2 Results Description No Information Available Procedures Description No Information Available Medical Devices Description No Information Available Encounters Type Date Location Provider Dx Diagnosis Office Visit 06/19/2020 9:15a [facility] Micky Rose MD S83.011A Lateral subluxation of right patella, in itial encounter Office Visit 05/30/2020 9:10a [facility] Micky Rose MD M25.562 Pain in left knee X50.1xxA Overexertion from prolonged static or awkward postures, init Office Visit 04/07/2020 10:00a [facility] Micky Rose MD M23.51 Chronic instability of knee, right knee M23.321 Oth meniscus derang, post ho rn of medial meniscus, r knee M23.341 Oth meniscus derang, anterio r horn of lat mensc, right knee Assessments Date Code Description Provider 06/19/2020 S83.011A Lateral subluxation of right pat sherrill, initial encounter Micky Rose MD 05/30/2020 M25.562 Pain in left knee Micky Rose MD 05/30/2020 X50.1xxA Overexertion from pr olonged static or awkward postures, initial encounter Micky Rose MD 04/07/2020 M23.51 Chronic instability of knee, rig ht knee Micky Rose MD 04/07/2020 M23.321 Other meniscus deran gements, posterior horn of medial meniscus, right knee Micky Rose MD 04/07/2020 M23.341 Other meniscus deran gements, anterior horn of lateral meniscus, right knee Micky Rose MD Plan of Treatment 05/30/2020 - Micky Rose MD* M25.562 Pain in left knee* Follow up:* after left knee mri results with [facility] please. *URGENT* * X50.1xxA Overexertion from prolonged static or awkward postures, initial encounter Functional Status Description No Information Available Mental Status Description No Information Available Referrals Refer to Dr Reason for Referral Status Appt Date Micky Rose MD MRI LT KNEE PER @ [facility] . [id number]. PASSED TO TRIAGE. LS // CALLED AND CHANGED TO [facility] PER TRIAGE REQUEST Closed [address], [address] [place] [address] [phone] Micky Rose MD SURGERY RECEIVED WRITTEN AUT H FOR RT KNEE SURGERY ([id number]) TO SURGERY NT Closed [address], [address] [place] [address] [phone]
--- OUTSIDE RECORDS SUMMARY | 2020-08-09 09:21 | CCD | Continuity of Care Document ---
Author Author Ricardo ROSE MD Organization Unknown Address [address] [place] 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 AUTM [phone] Problems Description No Information Available Social History [...] Available Vital Signs Date Vital Result Comment 07/28/2020 8:53am Body Temperature 98.5 F Height 70.5 inches 5'10.50" Weight 263.00 lb BMI (Body Mass Index) 37.2 kg/m2 [place] Body Weight 166 lb Weight 119.297 kg BSA (Body Surface Area) 2.36 m2 06/19/2020 9:21am Body Temperature 96.0 F Height 70.5 inches 5'10.50" Weight 263.50 lb BMI (Body Mass Index) 37.3 kg/m2 [place] Body Weight 166 lb Weight 119.524 kg BSA (Body Surface Area) 2.36 m2 Results Description No Information Available Procedures Description No Information Available Medical Devices Description No Information Available Encounters Type Date Location Provider Dx Diagnosis Office Visit 06/19/2020 9:15a [facility] iMcky Rose MD S83.011A Lateral subluxation of right patella, in itial encounter S83.512A Sprain of anterior cruciate ligament of left knee, init M23.51 Chronic instability of knee, right knee W19.xxxA Unspecified fall, initial en counter Office Visit 05/30/2020 9:10a [facility] Micky Rose MD M25.562 Pain in left knee X50.1xxA Overexertion from prolonged static or awkward postures, init Office Visit 04/07/2020 10:00a [facility] Micky Rose MD M23.51 Chronic instability of knee, right knee M23.321 Oth meniscus derang, post ho rn of medial meniscus, r knee M23.341 Oth meniscus derang, anterio r horn of lat mensc, right knee Assessments Date Code Description Provider 06/19/2020 S83.011A Lateral subluxation of right pat sherrill, initial encounter Micky Rose MD 06/19/2020 S83.512A Sprain of anterior c ruciate ligament of left knee, initial encounter Micky Rose MD 06/19/2020 M23.51 Chronic instability of knee, rig ht knee Micky Rose MD 06/19/2020 W19.xxxA Unspecified fall, initial encoun ter Micky Rose MD 05/30/2020 M25.562 Pain in left knee Micky Rose MD 05/30/2020 X50.1xxA Overexertion from pr olonged static or awkward postures, initial encounter Mciky Roes MD 04/07/2020 M23.51 Chronic instability of knee, rig ht knee Micky Rose MD 04/07/2020 M23.321 Other meniscus deran gements, posterior horn of medial meniscus, right knee Micky Rose MD 04/07/2020 M23.341 Other meniscus deran gements, anterior horn of lateral meniscus, right knee Micky Rose MD Plan of Treatment No Information Available Functional Status Description No Information Available Mental Status Description No Information Available Referrals Refer to Dr Reason for Referral Status Appt Date Micky Rose M.D. MRI LT KNEE PER @ [facility] . [phone]. PASSED TO TRIAGE. LS // CALLED AND CHANGED TO [facility] PER TRIAGE REQUEST Closed [address] [place] [address] [phone] Micky Rose M.D. SURGERY RECEIVED WRITTEN AUT H FOR RT KNEE SURGERY ([id number]) TO SURGERY NT Closed [address] [place] [address] [phone]
--- OUTSIDE RECORDS SUMMARY | 2020-08-09 09:21 | CCD ---
Author Author [facility] Organization [facility] Address Unknown Phone Unavailable Care Team [facility]iders [facility] Pharmacy Technician Name Role Phone ROLANDO, TYLER PA Unavailable Unavailable ROLANDO, TYLER PA Unavailable Unavailable ROLANDO, TYLER PA Unavailable Unavailable ROLANDO, TYLER PA Unavailable Unavailable ROLANDO, TYLER PA Unavailable Unavailable ROLANDO, TYLER PA Unavailable Unavailable ROLANDO, TYLER PA Unavailable Unavailable ROLANDO, TYLER PA Unavailable Unavailable ROLANDO, TYLER PA Unavailable Unavailable ROLANDO, TYLER PA Unavailable Unavailable ROLANDO, TYLER PA Unavailable Unavailable ROLANDO, TYLER PA Unavailable Unavailable ROLANDO, TYLER PA Unavailable Unavailable ROLANDO, TYLER PA Unavailable Unavailable ROLANDO, TYLER PA Unavailable Unavailable ROLANDO, TYLER PA Unavailable Unavailable ROLANDO, TYLER PA Unavailable Unavailable ROLANDO, TYLER PA Unavailable Unavailable ROLANDO, TYLER PA Unavailable Unavailable ROLANDO, TYLER PA Unavailable Unavailable ROLANDO, TYLER PA Unavailable Unavailable ROLANDO, TYLER PA Unavailable Unavailable ROLANDO, TYLER PA Unavailable Unavailable ROLANDO, TYLER PA Unavailable Unavailable ROLANDO, TYLER PA Unavailable Unavailable ROLANDO, TYLER PA Unavailable Unavailable ROLANDO, TYLER PA Unavailable Unavailable ROLANDO, TYLER PA Unavailable Unavailable ROLANDO, TYLER PA Unavailable Unavailable ROLANDO, TYLER PA Unavailable Unavailable ROLANDO, TYLER PA Unavailable Unavailable ROLANDO, TYLER PA Unavailable Unavailable ROLANDO, TYLER PA Unavailable Unavailable ROLANDO, TYLER PA Unavailable Unavailable ROLANDO, TYLER PA Unavailable Unavailable ROLANDO, TYLER PA Unavailable Unavailable ROLANDO, TYLER PA Unavailable Unavailable ROLANDO, TYLER PA Unavailable Unavailable ROLANDO, TYLER PA Unavailable Unavailable Pleskach, Jenn COLD ROLL CATCHER Unavailable Unavailable Pleskach, Jenn COLD ROLL CATCHER Unavailable Unavailable Pleskach, Jenn COLD ROLL CATCHER Unavailable Unavailable Pleskach, Jenn COLD ROLL CATCHER Unavailable Unavailable Pleskach, Jenn COLD ROLL CATCHER Unavailable Unavailable Pleskach, Jenn COLD ROLL CATCHER Unavailable Unavailable Pleskach, Jenn COLD ROLL CATCHER Unavailable Unavailable Pleskach, Jenn COLD ROLL CATCHER Unavailable Unavailable Pleskach, Jenn COLD ROLL CATCHER Unavailable Unavailable Pleskach, Jenn COLD ROLL CATCHER Unavailable Unavailable Pleskach, Jenn COLD ROLL CATCHER Unavailable Unavailable Pleskach, Jenn COLD ROLL CATCHER Unavailable Unavailable Pleskach, Jenn COLD ROLL CATCHER Unavailable Unavailable Pleskach, Jenn COLD ROLL CATCHER Unavailable Unavailable Pleskach, Jenn COLD ROLL CATCHER Unavailable Unavailable Pleskach, Jenn COLD ROLL CATCHER Unavailable Unavailable Pleskach, Jenn COLD ROLL CATCHER Unavailable Unavailable Pleskach, Jenn COLD ROLL CATCHER Unavailable Unavailable Pleskach, Jenn COLD ROLL CATCHER Unavailable Unavailable Pleskach, Jenn COLD ROLL CATCHER Unavailable Unavailable Pleskach, Jenn COLD ROLL CATCHER Unavailable Unavailable Pleskach, Jenn COLD ROLL CATCHER Unavailable Unavailable Pleskach, Jenn COLD ROLL CATCHER Unavailable Unavailable Pleskach, Jenn COLD ROLL CATCHER Unavailable Unavailable Pleskach, Jenn COLD ROLL CATCHER Unavailable Unavailable Pleskach, Jenn COLD ROLL CATCHER Unavailable Unavailable Pleskach, Jenn COLD ROLL CATCHER Unavailable Unavailable Pleskach, Jenn COLD ROLL CATCHER Unavailable Unavailable Pleskach, Jenn COLD ROLL CATCHER Unavailable Unavailable Pleskach, Jenn COLD ROLL CATCHER Unavailable Unavailable DRAZEK, I EMANI PA Unavailable Unavailable DRAZEK, I EMANI PA Unavailable Unavailable DRAZEK, I EMANI PA Unavailable Unavailable DRAZEK, I EMANI PA Unavailable Unavailable DRAZEK, I EMANI PA Unavailable Unavailable DRAZEK, I EMANI PA Unavailable Unavailable DRAZEK, I EMANI PA Unavailable Unavailable DRAZEK, I EMANI PA Unavailable Unavailable DRAZEK, I EMANI PA Unavailable Unavailable DRAZEK, I EMANI PA Unavailable Unavailable DRAZEK, I EMANI PA Unavailable Unavailable DRAZEK, I EMANI PA Unavailable Unavailable DRAZEK, I EMANI PA Unavailable Unavailable DRAZEK, I EMANI PA Unavailable Unavailable DRAZEK, I EMANI PA Unavailable Unavailable DRAZEK, I EMANI PA Unavailable Unavailable DRAZEK, I EMANI PA Unavailable Unavailable DRAZEK, I EMANI PA Unavailable Unavailable DRAZEK, I EMANI PA Unavailable Unavailable DRAZEK, I EMANI PA Unavailable Unavailable DRAZEK, I EMANI PA Unavailable Unavailable DRAZEK, I EMANI PA Unavailable Unavailable DRAZEK, I EMANI PA Unavailable Unavailable DRAZEK, I EMANI PA Unavailable Unavailable DRAZEK, I EMANI PA Unavailable Unavailable DRAZEK, I EMANI PA Unavailable Unavailable DRAZEK, I EMANI PA Unavailable Unavailable DRAZEK, I EMANI PA Unavailable Unavailable DRAZEK, I EMANI PA Unavailable Unavailable DRAZEK, I EMANI PA Unavailable Unavailable Raven Medrano MD Unavailable Unavailable Raven Medrano MD Unavailable Unavailable Raven Medrano MD Unavailable Unavailable Raven Medrano MD Unavailable Unavailable Raven Medrano MD Unavailable Unavailable Raven Medrano MD Unavailable Unavailable Raven Medrano MD Unavailable Unavailable Mollison, Raven Weeks MD Unavailable Unavailable Mollison, Raven Weeks MD Unavailable Unavailable Mollison, Raven Weeks MD Unavailable Unavailable Mollison, Raven Weeks MD Unavailable Unavailable Mollison, Raven Weeks MD Unavailable Unavailable Mollison, Raven Weeks MD Unavailable Unavailable Mollison, Raven Weeks MD Unavailable Unavailable Mollison, Raven Weeks MD Unavailable Unavailable Mollison, Raven Weeks MD Unavailable Unavailable Mollison, Raven Weeks MD Unavailable Unavailable Mollison, Raven Weeks MD Unavailable Unavailable Mollison, Raven Weeks MD Unavailable Unavailable Mollison, Raven Weeks MD Unavailable Unavailable Mollison, Raven Weeks MD Unavailable Unavailable Mollison, Raven Weeks MD Unavailable Unavailable Mollison, Raven Weeks MD Unavailable Unavailable Mollison, Raven Weeks MD Unavailable Unavailable Mollison, Raven Weeks MD Unavailable Unavailable Mollison, Raven Weeks MD Unavailable Unavailable [facility], EKOLB Unavailable Unavailable Doremus, E Rcaheal PA Unavailable Unavailable Doremus, E Racheal PA Unavailable Unavailable Doremus, E Racheal PA Unavailable Unavailable Doremus, E Racheal PA Unavailable Unavailable Doremus, E Racheal PA Unavailable Unavailable Doremus, E Racheal PA Unavailable Unavailable Doremus, E Racheal PA Unavailable Unavailable Doremus, E Racheal PA Unavailable Unavailable Doremus, E Racheal PA Unavailable Unavailable Doremus, E Racheal PA Unavailable Unavailable Doremus, E Racheal PA Unavailable Unavailable Doremus, E Racheal PA Unavailable Unavailable Doremus, E Racheal PA Unavailable Unavailable Doremus, E Racheal PA Unavailable Unavailable Doremus, E Racheal PA Unavailable Unavailable Doremus, E Racheal PA Unavailable Unavailable Doremus, E Racheal PA Unavailable Unavailable Doremus, E Racheal PA Unavailable Unavailable Doremus, E Racheal PA Unavailable Unavailable Pleskach, Jenn COLD ROLL CATCHER Unavailable Unavailable Pleskach, Jenn COLD ROLL CATCHER Unavailable Unavailable Pleskach, Jenn COLD ROLL CATCHER Unavailable Unavailable Pleskach, Jenn COLD ROLL CATCHER Unavailable Unavailable Pleskach, Jenn COLD ROLL CATCHER Unavailable Unavailable Pleskach, Jenn COLD ROLL CATCHER Unavailable Unavailable Pleskach, Jenn COLD ROLL CATCHER Unavailable Unavailable Pleskach, Jenn COLD ROLL CATCHER Unavailable Unavailable Pleskach, Jenn COLD ROLL CATCHER Unavailable Unavailable Pleskach, Jenn COLD ROLL CATCHER Unavailable Unavailable Pleskach, Jenn COLD ROLL CATCHER Unavailable Unavailable Pleskach, Jenn COLD ROLL CATCHER Unavailable Unavailable Pleskach, Jenn COLD ROLL CATCHER Unavailable Unavailable Pleskach, Jenn COLD ROLL CATCHER Unavailable Unavailable Pleskach, Jenn COLD ROLL CATCHER Unavailable Unavailable Pleskach, Jenn COLD ROLL CATCHER Unavailable Unavailable Pleskach, Jenn COLD ROLL CATCHER Unavailable Unavailable Pleskach, Jenn COLD ROLL CATCHER Unavailable Unavailable Pleskach, Jenn COLD ROLL CATCHER Unavailable Unavailable Pleskach, Jenn COLD ROLL CATCHER Unavailable Unavailable Pleskach, Jenn COLD ROLL CATCHER Unavailable Unavailable Pleskach, Jenn COLD ROLL CATCHER Unavailable Unavailable Pleskach, Jenn COLD ROLL CATCHER Unavailable Unavailable Pleskach, Jenn COLD ROLL CATCHER Unavailable Unavailable Pleskach, Jenn COLD ROLL CATCHER Unavailable Unavailable Pleskach, Jenn COLD ROLL CATCHER Unavailable Unavailable Pleskach, Jenn COLD ROLL CATCHER Unavailable Unavailable Pleskach, Jenn COLD ROLL CATCHER Unavailable Unavailable Pleskach, Jenn COLD ROLL CATCHER Unavailable Unavailable Pleskach, Jenn COLD ROLL CATCHER Unavailable Unavailable Aye RUIZ MD Unavailable Unavailable Aye RUIZ MD Unavailable Unavailable Aye RUIZ MD Unavailable Unavailable Aye RUIZ MD Unavailable Unavailable Aye RUIZ MD Unavailable Unavailable Aye RUIZ MD Unavailable Unavailable Aye RUIZ MD Unavailable Unavailable Aye RUIZ MD Unavailable Unavailable Aye RUIZ MD Unavailable Unavailable Antione Goddard MD Unavailable Unavailable Antione Goddard MD Unavailable Unavailable Antione Goddard MD Unavailable Unavailable Antione Goddard MD Unavailable Unavailable Antione Goddard MD Unavailable Unavailable Antione Goddard MD Unavailable Unavailable Antione Goddard MD Unavailable Unavailable Antione Goddard MD Unavailable Unavailable RupeshAntione son MD Unavailable Unavailable Antione Goddard MD Unavailable Unavailable Antione Goddard MD Unavailable Unavailable Antione Goddard MD Unavailable Unavailable Rupesh, Antione MD Unavailable Unavailable Rupesh Pinesdale MD Unavailable Unavailable Rupesh Antione MD Unavailable Unavailable Rupesh Pinesdale MD Unavailable Unavailable Rupesh Antione MD Unavailable Unavailable Rupesh, Pinesdale MD Unavailable Unavailable Rupesh, Pinesdale MD Unavailable Unavailable Rupesh Pinesdale MD Unavailable Unavailable Rupesh Pinesdale MD Unavailable Unavailable Rupesh Antione MD Unavailable Unavailable Rupesh Pinesdale MD Unavailable Unavailable Rupesh Antione MD Unavailable Unavailable Rupesh Antione MD Unavailable Unavailable Rupesh Pinesdale MD Unavailable Unavailable Rupesh Antione MD Unavailable Unavailable Rupesh, Antione MD Unavailable Unavailable Rupesh, Antione MD Unavailable Unavailable Rupesh, Pinesdale MD Unavailable Unavailable Rupesh, Pinesdale MD Unavailable Unavailable Rupesh, Antione MD Unavailable Unavailable Rupesh, Pinesdale MD Unavailable Unavailable Rupesh, Antione MD Unavailable Unavailable Rupesh, Pinesdale MD Unavailable Unavailable Rupesh, Antione MD Unavailable Unavailable Rupesh, Antione MD Unavailable Unavailable Rupesh, Pinesdale MD Unavailable Unavailable Rupesh, Antione MD Unavailable Unavailable Rupesh, Pinesdale MD Unavailable Unavailable Rupesh, Antione MD Unavailable Unavailable Rupesh, Pinesdale MD Unavailable Unavailable Rupesh, Pinesdale MD Unavailable Unavailable Rupesh, Antione MD Unavailable Unavailable Rupesh, Antione MD Unavailable Unavailable Rupesh, Pinesdale MD Unavailable Unavailable Re-disclosure Warning The records that you are about to access may contain information from federally-assisted alcohol or drug abuse programs. If such information is present, then the following federally mandated warning applies: This information has been disclosed to you from records protected by federal confidentiality rules (42 CFR part 2). The federal rules prohibit you from making any further disclosure of this information unless further disclosure is expressly permitted by the written consent of the person to whom it pertains or as otherwise permitted by 42 CFR part 2. A general authorization for the release of medical or other information is NOT sufficient for this purpose. The Federal rules restrict any use of the information to criminally investigate or prosecute any alcohol or drug abuse patient.The records that you are about to access may contain highly sensitive health information, the redisclosure of which is protected by Article 27-F of the [facility] Public Health law. If you continue you may have access to information: Regarding HIV / AIDS; Provided by facilities licensed or operated by the [facility] Office of Mental Health; or Provided by the [facility] Office for People With Developmental Disabilities. If such information is present, then the following [facility] mandated warning applies: This information has been disclosed to you from confidential records which are protected by state law. State law prohibits you from making any further disclosure of this information without the specific written consent of the person to whom it pertains, or as otherwise permitted by law. Any unauthorized further disclosure in violation of state law may result in a fine or longterm sentence or both. A general authorization for the release of medical or other information is NOT sufficient authorization for further disc losure. Family History Family Member Name Family Member Gender Family Member Status Date o f Status Description Data Source(s) Unknown Male Problem [facility] ([facility]) Encounters Encounter Providers Location Date Indications Data Source(s ) Outpatient Attender: Micky Car/[place]/Primitivo/Re indl 06/19/2020 08:15:00 AM EST [facility] ([facility] Outpatient Attender: Micky Car/Sea/Primitivo/Re indl 05/30/2020 08:10:00 AM EST [facility] ([facility]) Outpatient Attender: Micky Car/Sea/Primitivo/Re indl 04/07/2020 10:00:00 AM EDT [facility] ([facility]) [facility] 02/04/2020 01:23:00 PM EDT [facility] Outpatient Attender: EMANI PADILLA Physical Therapy 02/02/2020 0 9:15:00 AM EDT [facility] ([facility]) Outpatient Attender: TYLER atwood 01/29/2020 10:20:00 AM EDT [facility] ([facility] Outpatient Attender: KAVON SALINAS 01/18/2020 04:37:00 PM EDT [facility] Outpatient Attender: Racheal PADILLA Physical Therapy 11:15:00 AM EDT [facility] ([facility]) Outpatient Referrer: Jenn CAMP 12/10/2019 05:34:0 0 AM EDT [facility] Outpatient Attender: Racheal PADILLA Physical Therapy 02:30:00 PM EDT [facility] ([facility]) Outpatient Referrer: Jenn CAMP 12/01/2019 02:59:0 0 PM EDT [facility] Outpatient Referrer: Jenn CAMP 12/01/2019 02:57:0 0 PM EDT [facility] Outpatient Referrer: Jenn CAMP 12/01/2019 02:56:0 0 PM EDT [facility] Outpatient Referrer: Jenn Petty [facility] 12/01/2019 02:25:0 0 PM EDT [facility] Outpatient Referrer: Jenn Petty [facility] 12/01/2019 01:28:0 0 PM EDT [facility] Outpatient 12/01/2019 01:26:00 PM EDT [facility] Outpatient Attender: Jenn Kirklandshania [facility] Main Office 12/01/2019 0 8:40:00 AM EDT [facility] ([facility] Outpatient Attender: KAVON [facility] 11/23/2019 07:44:18 PM EDT [facility] Outpatient Attender: Jenn Jovanny [facility] Main Office 11/22/2019 0 1:00:00 PM EDT [facility] ([facility] Emergency Attender: JUAN MIGUEL RUIZ MDConsultant: Antione Salinas che, MD 11/13/2019 12:41:00 AM EDT - 11/13/2019 01:26:00 AM EDT [facility] Patient discharged. Outpatient Attender: KAVON [facility] 11/13/2019 12:13:42 AM EDT [facility] Medications Medication Brand Name Start Date Product Form Dose Route Admi nistrative Instructions Pharmacy Instructions Status Indications Reaction Description Data Source(s) 5-325 mg 06/20/2020 12:00:00 AM EST tablet 30 TAKE 1-2 TABLETS BY MOUTH EVERY 4 TO 6 HOURS NEEDED FOR POST SURGICAL PAIN MAXIMUM DAILY DOSE = 8 TABLETS TAKE 1-2 TABLETS BY MOUTH EVERY 4 TO 6 H OURS NEEDED FOR POST SURGICAL PAIN MAXIMUM DAILY DOSE = 8 TABLETS SOLD: 06/20/2020 [facility] No Active Medications 06/19/2020 12:00:00 AM EST active [facility] ([facility], ) Acetaminophen 325 MG / Oxycodone Hydrochloride 5 MG Or al Tablet Oxycodone-Acetaminophen 05/22/2020 12:00:00 AM EST ORAL completed [facility] ([facility], ) Ibuprofen 600 MG Oral Tablet Ibuprofen 02/02/2020 12:00:00 AM EDT ORAL active [facility] ([facility]) Ketorolac Tromethamine 10 MG Oral Tablet Ketorolac Trometham ine 01/29/2020 12:00:00 AM EDT active M [facility] ([facility]) 10 mg 01/29/2020 12:00:00 AM EDT tablet 20 TAKE ONE TABLET BY MOUTH EVERY 6 HOURS NEEDED FOR PAIN TAKE ONE TABLET BY MOUTH EVERY 6 HOURS A S NEEDED FOR PAIN SOLD: 01/29/2020 [facility] 1,200 mg 01/04/2020 12:00:00 AM EDT tablet extended release 12hr 30 TAKE 1 TABLET BY MOUTH TWICE A DAY FOR COUGH TAKE 1 TABLET BY MOUTH TWICE A DAY FOR COUGH SOLD: 01/05/2020 [facility] 90 mcg/actuation 01/04/2020 12:00:00 AM EDT HFA aerosol inha ler 18 INHALE 2 PUFFS BY MOUTH EVERY 4 TO 6 HOURS NEEDED FOR WHEEZING INHALE 2 PUFFS BY MOUTH EVERY 4 TO 6 HOURS NEEDED FOR WHEEZING SOLD: 01/05/2020 [facility] 150 mg 12/24/2019 12:00:00 AM EDT tablet sustained-releas e 12 hr 60 TAKE ONE TABLET BY MOUTH EVERY DAY FOR 3 DAYS THEN INCREASE TO TWO TIMES A DAY TAKE ONE TABLET BY MOUTH EVERY DAY FOR 3 DAYS THEN INCREASE TO TWO TIMES A DAY SOLD: 01/05/2020 [facility] 15 mg 12/03/2019 12:00:00 AM EDT tablet 30 TAKE ONE TABLET BY MOUTH EVERY DAY WITH FOOD OR MILK TAKE ONE TABLET BY MOUTH EVERY DAY WITH FOOD OR MILK S OLD: 12/03/2019 [facility] meloxicam 15 MG Oral Tablet Meloxicam 12/02/2019 12:00:00 AM EDT ORAL active [facility] ([facility]) 150 mg 11/23/2019 12:00:00 AM EDT tablet sustained-releas e 12 hr 60 TAKE ONE TABLET BY MOUTH EVERY DAY FOR THREE DAYS THEN INCREASE TO TWO TIMES A DAY TAKE ONE TABLET BY MOUTH EVERY DAY FOR THREE DAYS THEN INCREASE TO TWO TIMES A DAY SOLD: 11/23/2019 [facility] 12 HR Bupropion Hydrochloride 150 MG Extended Release Oral Tablet Bupropion Hydrochloride ER (SR) 11/22/2019 12:00:00 AM EDT a ctive [facility] ([facility]) 12 HR Bupropion Hydrochloride 150 MG Extended Release Oral Tablet Bupropion Hydrochloride ER (SR) 11/22/2019 12:00:00 AM EDT a ctive [facility] ([facility] 800 mg 11/13/2019 12:00:00 AM EDT tablet 30 TAKE ONE TABLET BY MOUTH EVERY 8 HOURS NEEDED FOR PAIN TAKE ONE TABLET BY MOUTH EVERY 8 HOURS A S NEEDED FOR PAIN SOLD: 11/13/2019 [facility] Cephalexin 500 MG Oral Capsule CEPHALEXIN 11/13/2019 12:00:00 AM EDT capsule 30 TAKE ONE CAPSULE BY MOUTH EVERY 8 HOURS TO PREVENT WOU ND INFECTION TAKE ONE CAPSULE BY MOUTH EVERY 8 HOURS TO PREVENT WOUND INFECTION SOLD: 11/13/2019 [facility] 600 mg 09/28/2019 12:00:00 AM EDT tablet 20 TAKE 1 TABLET BY MOUTH EVERY 6 HOURS NEEDED TAKE 1 TABLET BY MOUTH EVERY 6 HOURS NEEDED SOLD: 020 [facility] benzonatate 200 MG Oral Capsule BENZONATATE 07/25/2019 12:00:00 AM EST capsule 21 TAKE ONE CAPSULE BY MOUTH THREE TIMES A DAY NEEDED FOR 7 DAYS TAKE ONE CAPSULE BY MOUTH THREE TIMES A DAY NEEDED FOR 7 DAYS SOLD: 07/25/2019 [facility] 75 mg 07/25/2019 12:00:00 AM EST capsule 10 TAKE ONE CAPSULE BY MOUTH TWICE A DAY FOR 5 DAYS TAKE ONE CAPSULE BY MOUTH TWICE A DAY FOR 5 DAYS SOLD: 07/25/2019 [facility] 600 mg 07/25/2019 12:00:00 AM EST tablet 45 TAKE ONE TABLET BY MOUTH THREE TIMES A DAY NEEDED FOR 15 DAYS WITH FOOD TAKE ONE TABLET BY MOUTH THREE TIMES A DAY NEEDED FOR 15 DAYS WITH FOOD SOLD: 07/25/2019 [facility] Insurance Providers Payer name Policy type / Coverage type Policy ID Covered green party ID Covered green party's relationship to hernandez Policy Hernandez Plan Information [facility] [id number] SP [id number] [facility] [id number] SP [id number] [facility] [id number] SP [id number] [facility] O [id number] S [id number] Self Pay P UNAVAILABLE S UNAVAILA BLE [facility] XIX [id number] 18 [id number] [facility] Community Plan Commercial [id number] Self [id number] [facility] [id number] SP [id number] [place]ICAID [id number] SP [id number] SELF PAY ONLY [phone] SP [id number] SELF PAY ONLY SP [id number] [employer] [place] PPO 302/[id number] SP [id number] F F [facility] [id number] SP [id number] [facility] O [id number] S [id number] OTHER LIABILITY [id number] SP M [id number] MEDICAID [id number] SP [id number] MEDICAID P [id number] S [id number] SELF PAY [id number] SP [id number] Problems, Conditions, and Diagnoses Code Display Name Description Problem Type Effective Dates Data Source(s) Y9[address] or not applicable Unspecified place or not applicable Diagnosis 11/13/2019 12:41:00 AM EDT [facility] [id number] Contact with sharp glass, initial encoun ter Contact with sharp glass, initial encounter Diagnosis 11/13/2019 12:41:00 AM EDT [facility] [id number] Laceration without foreign body of right forearm, initial encounter Laceration without foreign body of right forearm, initial encounter Diagnosis 11/13/2019 12:41:00 AM [facility] Surgeries/Procedures Procedure Description Date Indications Data Source(s) MRI Lower Extremity Any Joint 02/15/2020 12:00:00 AM E DT [facility] ([facility] RADIOLOGIC EXAM KNEE COMPLETE 4/MORE VIEWS 02/02/2020 12:00:00 AM EDT [facility] ([facility] ) Therapeutic, Prophylactic Or Diagnostic Injection Subq/Im 01/29/2020 12:00:00 AM EDT [facility] ([facility]) Results ID Date Data Source [id number] 08/04/2020 11:35:00 AM EST [facility] Name Value Range Interpretation Code Description Data Fouzia rce(s) Supporting Document(s) SARS coronavirus 2 RNA Not Detected [facility] This lab was ordered by [facility] and reported by [facility]. ID Date Data Source [id number] 05/24/2020 02:00:00 PM EST [facility] Name Value Range Interpretation Code Description Data Fouzia rce(s) Supporting Document(s) SARS coronavirus 2 RNA [facility] This lab was ordered by [facility] and reported by [facility]. ID Date Data Source [id number] 01/04/2020 12:00:00 AM EDT [facility] Name Value Range Interpretation Code Description Data Fouzia rce(s) Supporting Document(s) SARS coronavirus 2 RNA [Presence] in Res piratory specimen by DESTINI with probe detection [facility] This lab was ordered by [facility] and reported by [facility]. ID Date Data Source [id number] 12/01/2019 12:00:00 AM EDT [facility] Betito Catalan Patient Name: DARIEL [id number] Date [place] : 1995[place] [address] Date of Exam: 12/01/2019#: Fax: [phone] EXAM: US RIGHT EXTREMITY VEINS, UNILATCLINICAL INFORMATION: Pain and swelling.Multiple ultrasonographic images of the deep venous structures of the rightupper extremity were obtained from the brachial vein to the interrogatableportions of the subclavian vein along with color flow doppler imaging anddoppler interrogation.There is no evidence of abnormal echogenic material seen in any of thevisualized deep venous structures of the right upper extremity. Coaptationwhere obtainable was achievable throughout.IMPRESSION:No ultrasonographic evidence of deep venous thrombosis involving theimageable portions of the deep venous structures of the right upperextremity.Accredited by the [employer] in Vascular PeripheralUltrasound.AmyAJAY Hall/Vero ponce for referring DARIEL KERNS to our office. Electronically Signed - AMY JUNIOR DO 12/02/19 10:09 Name Value Range Interpretation Code Description Data Fouzia rce(s) Supporting Document(s) ID Date Data Source [id number] 11/13/2019 12:41:00 AM EDT [facility] 1 OrderSheet [facility] Emergency Department [address] [place] [address] Phone #: ext- [phone] 11/13/2019 00:38 Patient: DARIEL KERNS Sex: M : 1995 Age: 24yWEIGHT:90.7 kg (S) HEIGHT:70 inches (S) BMI:28.7ALLERGIES: No Known Drug AllergyCHIEF COMPLAINT: Rt, forearmDIAGNOSIS: Laceration - Injury, Laceration - InjuryLAB ORDERSOrder Description Priority Entered Acknowledged InitialedDIAGNOSTIC STUDY ORDERSOrder Description Priority Entered Acknowledged InitialedMEDICATION/IV/DRIP/FLUID ORDERSOrder Description Priority Entered Acknowledged InitialedTdap IM 0.5 mL 01:06 11/13/2019 01:17 Radha Cordova R.N. Physician;GENERAL ORDERSOrder Description Priority Entered Acknowledged Initialed[Electronically signed by Radha White R.N. (04:57 11/13/2019)][Electronically signed by Juan Miguel Ruiz Physician (16:01 11/14/2019)][Electronically locked by Radha White R.N. (04:57 11/13/2019)] Name Value Range Interpretation Code Description Data Fouzia rce(s) Supporting Document(s) ID Date Data Source [id number] 11/13/2019 12:41:00 AM EDT [facility] 1 Medication Reconciliation Report [facility] Emergency Department [address] [place] [address] Phone #: ext- [phone] 11/13/2019 00:38 Patient: DARIEL KERNS Sex: M : 1995 Age: 24yWeight: 90.7 kgHeight/Length: 70 in.BMI: 28.7ALLERGIES: No Known Drug AllergyThe patient's Home Medications are listed below:NONE.The source(s) of the original Home Medication information:Not obtained.The following Medications were given to the patient in the Emergency Department:TDAP [IM] IM 0.5 mL, administered: 11/13/2019 1:07:00 AMThe following Medications were prescribed to the patient:Keflex 500 mg capsule Take 1 capsule every eight hours for 10 days -- To prevent wound infection.Dispense 30 capsule. Refills: 0. Substitution permitted.[facility] - [address] [place], [place] [id number]. FaxNumber: .ibuprofen 800 mg tablet Take 1 tablet every eight hours as needed for 10 days -- for pain or fever.Dispense 30 tablet. Refills: 0. Substitution permitted.[facility]67 - [address] [place], [place] [id number]. .Neosporin + Pain Relief 3.5 mg-10,000 unit-10 mg/gram topical cream Apply 1 a small amount twice a dayfor 10 days -- To prevent wound infection. Dispense 1 tube. Refills: 0. Substitution permitted.[facility]76 - [address] [facility] ; [place], [place] [id number]. . -- Physician Ruben Name Value Range Interpretation Code Description Data Fouzia rce(s) Supporting Document(s) ID Date Data Source [id number] 11/13/2019 12:41:00 AM EDT [facility] 1 Medication Administration Record [facility] Emergency Department [address] [place] [address] Phone #: ext- [phone] 11/13/2019 00:38 Patient: DARIEL KERNS Sex: M : 1995 Age: 24yWeight: 90.7 kgHeight/Length: 70 inBMI: 28.7ALLERGIES: No Known Drug Allergy Date/Time Medication Administered Medication OrderedGiven TDAP [IM] Tdap IM 0.5 mL01:07 11/13/2019 Dose: 0.5 mL Malick Cordova R.N. Name Value Range Interpretation Code Description Data Fouzia rce(s) Supporting Document(s) ID Date Data Source [id number] 11/13/2019 12:41:00 AM EDT [facility] 1 General Instructions [facility] Emergency Department [address] [place] [address] Phone #: ext- [phone] 11/13/2019 00:38 Patient: DARIEL KERNS Sex: M : 1995 Age: 24yMultiple deep lacerations to the right forearm. No foreign body present or cellulitis. Treatment of lacerationnot delayed.Multiple deep lacerations to the right forearm. (4cm and 2cm lacerations down to muscle.). No foreign bodypresent or cellulitis. Treatment of laceration not delayed.INSTRUCTIONSProtect wound and keep wound area clean. Change dressing twice daily. You may wash wounds briefly,then dry. Apply neosporin twice daily. Aries should be removed in fourteen days. Do not work today,tomorrow.Warnings: TETANUS: You were given a tetanus shot during your visit. Make a note for future reference.GENERAL WARNINGS: Return or contact your physician immediately if your condition worsens orchanges unexpectedly, if not improving as expected, or if other problems arise.Prescription Medications:Keflex 500 mg capsule Take 1 capsule every eight hours for 10 days - - To prevent wound infection.Dispense 30 capsule. Refills: 0. Substitution permitted.[facility] - [address] [place], [place] [id number]. .ibuprofen 800 mg tablet Take 1 tablet every eight hours as needed for 10 days -- for pain or fever.Dispense 30 tablet. Refills: 0. Substitution permitted.[facility]41 - [address] [place], [place] [phone]. .Neosporin + Pain Relief 3.5 mg-10,000 unit-10 mg/gram topical cream Apply 1 a small amount twice a dayfor 10 days -- To prevent wound infection. Dispense 1 tube. Refills: 0. Substitution permitted.[facility]20 - [address] [place], [place] [id number]. .Follow-up:Follow up with your doctor in two weeks even if well and for staple removal. Call for an appointment.Reason for referral: evaluation, treatment and Lacerations to R fore arm.Understanding of the discharge instructions verbalized by patient. 2 General Instructions [facility] Emergency Department [address] [place] [address] Phone #: ext- [phone] 11/13/2019 00:38 Patient: DARIEL KERNS [facility]#: [id number] Sex: M : 1995 Age: 24y ADDITIONAL INFORMATIONExtremity Laceration: Stitches, Aries, or TapeA laceration is a cut through the skin. If it is deep, it may require stitches or aries to close so it canheal. Minor cuts may be treated with surgical tape closures, or skin glue.X-rays may be done if something may have entered the skin through the cut. You may also need atetanus shot if you are not up to date on this vaccine.Home care Follow the healthcare provider's instructions on how to care for the cut. Wash your hands with soap and warm water before and after caring for your wound. This is to help prevent infection. Keep the wound clean and dry. If a bandage was applied and it becomes wet or dirty, replace it. Otherwise, leave it in place for the first 24 hours, then change it once a day or as directed. If stitches or aries were used, clean the wound daily: o After removing the bandage, wash the area with soap and water. Use a wet cotton swab to loosen and remove any blood or crust that forms. o After cleaning, keep the wound clean and dry. Talk with your healthcare provider before putting any antibiotic ointment on the wound. Reapply the bandage. You may remove the bandage to shower as usual after the first 24 hours, but don't soak the area in water (no swimming) until the stitches or aries are removed. If surgical tape closures were used, keep the area clean and dry. If it becomes wet, blot it dry with a towel. Let the surgical tape fall off on its own. The healthcare provider may prescribe an antib iotic cream or ointment to prevent infection. He or she may also prescribe an antibiotic pill. Don't stop taking this medicine until you have finished it all or the provider tells you to stop. The provider may also prescribe medicine for pain. Follow the instructions for taking these medicines. Don't do activities that may reopen your wound.Follow-up careFollow up with your healthcare provider, or as advised. Most skin wounds heal within 10 days. But aninfection may sometimes occur even with proper treatment. Check the wound daily for the signs of 3 General Instructions [facility] Emergency Department [address] [place] [address] Phone #: ext- [phone] 11/13/2019 00:38 Patient: DARIEL KERNS Sex: M : 1995 Age: 24yinfection listed below. Stitches and aries should be removed within 7 to14 days. If surgical tapeclosures were used, you may remove them after 10 days if they have not fallen off by then.When to seek medical adviceCall your healthcare provider right away if any of these occur: Wound bleeding not controlled by direct pressure Signs of infection, including increasing pain in the wound, increasing wound redness or swelling, or pus or bad odor coming from the wound Fever of 100.4F (38C) or higher, or as directed by your healthcare provider Stitches or aries come apart or fall out or surgical tape falls off before 7 days Wound edges reopen Wound changes colors Numbness occurs around the wound Decreased movement around the injured area [id number] [employer]. [address] [place] [address]. All rights reserved. This information is not intended as asubstitute for professional medical care. Always follow your healthcare professional's instructions.Extremity Laceration: Stitches, [place], or TapeA laceration is a cut through the skin. If it is deep, it may require stitches or aries to close so it canheal. Minor cuts may be treated with surgical tape closures, or skin glue.X-rays may be done if something may have entered the skin through the cut. You may also need atetanus shot if you are not up to date on this vaccine.Home care Follow the healthcare provider's instructions on how to care for the cut. Wash your hands with soap and warm water before and after caring for your wound. This is t o help prevent infection. Keep the wound clean and dry. If a bandage was applied and it becomes wet or dirty, replace it. Otherwise, leave it in place for the first 24 hours, then change it once a day or as directed. If stitches or aries were used, clean the wound daily: o After removing the bandage, wash the area with soap and water. Use a wet cotton 4 General Instructions [facility] Emergency Department [address] [place] [address] Phone #: [phone]- [phone] 11/13/2019 00:38 Patient: DARIEL KERNS Sex: M : 1995 Age: 24y swab to loosen and remove any blood or crust that forms. o After cleaning, keep the wound clean and dry. Talk with your healthcare provider before putting any antibiotic ointment on the wound. Reapply the bandage. You may remove the bandage to shower as usual after the first 24 hours, but don't soak the area in water (no swimming) until the stitches or aries are removed. If surgical tape closures were used, keep the area clean and dry. If it becomes wet, blot it dry with a towel. Let the surgical tape fall off on its own. The healthcare provider may prescribe an antibiotic cream or ointment to prevent infection. He or she may also prescribe an antibiotic pill. Don't stop taking this medicine until you have finished it all or the provider tells you to stop. The provider may also prescribe medicine for pain. Follow the instructions for taking these medicines. Don't do activities that may reopen your wound.Follow-up careFollow up with your healthcare provider, or as advised. Most skin wounds heal within 10 days. But aninfection may sometimes occur even with proper treatment. Check the wound daily for the signs ofinfection listed below. Stitches and aries should be removed within 7 to14 days. If surgical tapeclosures were used, you may remove them after 10 days if they have not fallen off by then.When to seek medical adviceCall your healthcare provider right away if any of these occur: Wound bleeding not controlled by direct pressure Signs of infection, including increasing pain in the wound, increasing wound redness or swelling, or pus or bad odor coming from the wound Fever of 100.4F (38C) or higher, or as directed by your healthcare provider Stitches or aries come apart or fall out or surgical tape falls off before 7 days Wound edges reopen Wound changes colors Numbness occurs around the wound Decreased movement around the injured area 5 General Instructions [facility] Emergency Department [address] [place] [address] Phone #: [phone]- [phone] 11/13/2019 00:38 Patient: DARIEL KERNS Sex: M : 1995 Age: 24y [id number] [employer]. [address] [place] [address]. All rights reserved. This information is not intended as asubstitute for professional medical care. Always follow your healthcare professional's instructions.Extremity Laceration: Stitches, [place], or TapeA laceration is a cut through the skin. If it is deep, it may require stitches or aries to close so it canheal. Minor cuts may be treated with surgical tape closures, or skin glue.X-rays may be done if something may have entered the skin through the cut. You may also need atetanus shot if you are not up to date on this vaccine.Home care Follow the healthcare provider's instructions on how to care for the cut. Wash your hands with soap and warm water before and after caring for your wound. This is to help prevent infection. Keep the wound clean and dry. If a bandage was applied and it becomes wet or dirty, replace it. Otherwise, leave it in place for the first 24 hours, then change it once a day or as directed. If stitches or aries were used, clean the wound daily: o After removing the bandage, wash the area with soap and water. Use a wet cotton swab to loosen and remove any blood or crust that forms. o After cleaning, keep the wound clean and dry. Talk with your healthcare provider before putting any antibiotic ointment on the wound. Reapply the bandage. You may remove the bandage to shower as usual after the first 24 hours, but don't soak the area in water (no swimming) until the stitches or aries are removed. If surgical tape closures were used, keep the area clean and dry. If it becomes wet, blot it dry with a towel. Let the surgical tape fall off on its own. The healthcare provider may prescribe an antibiotic cream or ointment to prevent infection. He or she may also prescribe an antibiotic pill. Don't stop taking this medicine until you have finished it all or the provider tells you to stop. The provider may also prescribe medicine for pain. Follow the instructions for taking these medicines. Don't do activities that may reopen your wound.Follow-up careFollow up with your healthcare provider, or as advised. Most skin wounds heal within 10 days. But an 6 General Instructions [facility] Emergency Department [address] [place] [address] Phone #: ext- [phone] 11/13/2019 00:38 Patient: DARIEL KERNS Sex: M : 1995 Age: 24yinfection may sometimes occur even with proper treatment. Check the wound daily for the signs ofinfection listed below. Stitches and aries should be removed within 7 to14 days. If surgical tapeclosures were used, you may remove them after 10 days if they have not fallen off by then.When to seek medical adviceCall your healthcare provider righ t away if any of these occur: Wound bleeding not controlled by direct pressure Signs of infection, including increasing pain in the wound, increasing wound redness or swelling, or pus or bad odor coming from the wound Fever of 100.4F (38C) or higher, or as directed by your healthcare provider Stitches or aries come apart or fall out or surgical tape falls off before 7 days Wound edges reopen Wound changes colors Numbness occurs around the wound Decreased movement around the injured area [phone] [employer]. [address] [place], [place] [address]. All rights reserved. This information is not intended as asubstitute for professional medical care. Always follow your healthcare professional's instructions. You have been given the following additional information: Laceration, Extremity: Stitches, Staple, or Tape Laceration, Extremity: Stitches, Staple, or Tape Laceration, Extremity: Stitches, Staple, or Tape Do not work today, tomorrow.(Electronically signed by Juan Miguel Ruiz, Physician 11/14/2019 16:01) Name Value Range Interpretation Code Description Data Fouzia rce(s) Supporting Document(s) ID Date Data Source [id number] 11/13/2019 12:41:00 AM EDT [facility] 1 Clinical Report - Nurses [facility] Emergency Department [address] [place] [address] Phone #: ext- [phone] 11/13/2019 00:38 Patient: DARIEL KERNS Sex: M : 1995 Age: 24yTRIAGEArrived by private vehicle. Historian: patient.Triage time: 00:40 11/13/2019.Chief Complaint: INJURY TO THE RIGHT FOREARM. --00:40 11/13/19 Radha Cordova R.N.Acuity: LEVEL 3.SEPSIS SCREEN: SIRS Screen: heart rate greater than 90. Sepsis Screen negative. No suspected orconfirmed signs of infection present. --00:45 11/13/19 Radha Cordova R.N.00:42 11/13/19. BP: 142/83. MAP: 102. HR: 99. RR: 16. O2 saturation: 98%. Temp: 97.8 F. Pain levelnow: 10/23. --00:45 11/13/19 Radha Cordova R.N.Weight: 90.7 kg stated. Height/Length: 70 inches Per Patient. BMI: 28.7. --00:40 11/13/19 Radha Carlson R.N.MedicationsNone. --01:24 11/13/19 Radah Cordova R.N.AllergiesNo Known Drug Allergy. --01:24 11/13/19 Radha Cordova R.N.HistoryPAST MEDICAL HX: Tetanus status: more than 5 years ago.SOCIAL HX: Smoker- current status unknown. Occasional alcohol use. (12 pack tonight). No drug use.He was offered HIV testing but declined and hepatitis C testing but declined. [place]Infectious disease exposure: No infectious disease exposure.SELF HARM ASSESSMENT: Self harm assessment was performed. The patient answered "no" to thequestion(s) "Do you have thoughts of harming or killing yourself?" and "Have you recently had thoughtsabout harming or killing others?".ABUSE ASSESSMENT: No report of abuse. --00:45 11/13/19 Radha Cordova R.N.00:40 11/13/19.FALL RISK ASSESSMENT: Fall risk assessment completed. Fall interventions initiated. Bed in lowposition. Brakes on. Patient visible from nurses' station. Call light in reach of patient. --01:25 11/13/19 Radha 2 Clinical Report - Nurses [facility] Emergency Department [address] [place] [address] Phone #: ext- [phone] 11/13/2019 00:38 Patient: DARIEL KERNS Sex: M : 1995 Age: 24y Eladio Cordova R.N.PHYSICAL [id number]:40 11/13/19. Ambulatory to room.GENERAL / NEURO / PSYCH: Oriented X 4. Alert. Appears in pain and anxious.EXTREMITIES: Extremities exhibit normal ROM. ( Blood soaked bandage on Right arm.).SKIN: Skin intact. Skin is warm and dry. Multiple superficial and subcutaneous lacerations to rightforearm. --01:24 11/13/19 Radha Cordova R.N.NURSING PROGRESS NOTES00:40 11/13/19. Reassurance given to the patient. Call light placed in reach. Bed placed in lowestposition. Brakes of bed on. --01:21 11/13/19 Radha Cordova R.N. 01:07 11/13/2019 TDAP IM 0.5 mL given(Lot#: [id number], expiration date: 09/15/2021, [employer] Equipment [employer]: [employer]). Given in the l eft deltoid. Allergies verified and confirmed 5 rights. Information reviewed with patient including reason for taking this medication. Vaccine information statement provided to the patient ( Date of VIS). --01:17 11/13/19 Radha Cordova R.N. 01:11/13/2019 TDAP IM Response: no adverse reaction. --01:11/13/19 Radha Cordova R.N.DISPOSITION / DISCHARGE Departure time: 01:11/13/2019. Condition at departure: improved and stable. Reviewed medication(s). Prescription(s) sent electronically to pharmacy. Work note given. Patient verbalized understanding. Written instructions provided in Tristanian. The patient was discharged by the physician. He was discharged home and accompanied by spouse. He left via private vehicle. Spouse driving. --01:11/13/19 Radha Cordova R.N. 01:11/13/19. BP: deferred. HR: deferred. RR: deferred. O2 saturation: deferred. Temp: deferred. Pain level now: 06/25. --01:27 11/13/19 Radha Cordova R.N.Locked/Released at 11/13/2019 04:57 by Radha Cordova R.N. Name Value Range Interpretation Code Description Data Fouzia rce(s) Supporting Document(s) ID Date Data Source [id number] 11/13/2019 12:41:00 AM EDT [facility] 1 Clinical Report - Physicians/Mid Levels [facility] Emergency Department [address] [place] [address] Phone #: ext- [phone] 11/13/2019 00:38 Patient: DARIEL KERNS Sex: M : 1995 Age: 24y Time Seen: 00:54 11/13/2019. Arrived- By private vehicle. Historian- patient. Disposition decision: 01:09 11/13/2019.HISTORY OF PRESENT ILLNESS Chief Complaint: Chief Complaint- 2 deep subQ lacerations to R forearm after putting arm through a glass window somewhere in [place]. he also has several very small superficial lacs from R elbow to R ulnar hand that are non-bleeding. and Injury to right forearm. The injury happened just prior to arrival today. The patient sustained a laceration from a broken glass. ([place]). ( [facility] Patient is experiencing moderate pain. No injury to the head or neck or other injury. ( Wounds are 4cm and 2cm in length).REVIEW OF SYSTEMSThe patient sustained multiple lacerations to the right forearm. No swelling, tingling, numbness, weaknessor suspected foreign body.PAST HISTORYPast history not negative. See nurses notes. The patient's dominant hand is the right. Tetanusimmunization status is unknown.SOCIAL HISTORYSmoker - current status unknown. Occasional alcohol use. Last drink was just prior to arrival. [place] No drug use. No recent travel.ADDITIONAL NOTESThe nursing notes have been reviewed with agreement regarding the chief complaint, HPI, ROS, PMH andpatient medications and allergies.PHYSICAL EXAMVital Signs: 11/13/2019 00:42 BP: 142/83. MAP: 102. HR: 99. RR: 16. O2 saturation: 98%. Temp: 97.8 F.Pain level now: 10/23. Have been reviewed and appear to be correct. Hypertensive. Heart rate normal.Respiratory rate normal. Temperature normal. Oxygen saturation normal.Appearance: Alert. Anxious. Appears to be in pain. In distress. Patient in moderate distress. Nobackboard or C-collar.Head: Head atraumatic.Eyes: Pupils equal, round and reactive to light. Eyes normal inspection.ENT: Nose normal. Pharynx normal.Neck: Normal inspection. Neck supple. C-spine non-tender.CVS: Normal heart rate. Heart sounds normal. Pulses normal. 2 Clinical Report - Physicians/[facility] Emergency Department [address] [place] [address] Phone #: ext- [phone] 11/13/2019 00:38 Patient: DARIEL KERNS Sex: M : 1995 Age: 24y Respiratory: No respiratory distress. Painless inspiration. Breath sounds normal. Chest nontender. Abdomen: No visible injury. Soft and nontender. Bowel sounds normal. No organomegaly. No mass. Skin: Skin not intact. Skin warm and dry. Normal skin color. Normal skin turgor. (2 deep lacerations to R ulnar mid-forearm - 4cm and 2cm). Extremities: Moderate soft tissue tenderness present over the ulnar aspect of the mid right forearm. No signs of infection present in the upper extremities. Left shoulder. Right forearm: subcutaneous 4.0 cm laceration with active bleeding located in the mid ulnar aspect of forearm. SEE LACERATION PROCEDURE NOTE #1. Neurovascular intact distally. Upper extremity not otherwise negative. Extremities otherwise negative. Neuro, Vascular and Tendons: Vascular status intact. Sensation intact. Motor intact. Tendon function intact. Neuro: Oriented X 3. No motor deficit. No sensory deficit.LABS, X-RAYS, AND EKGLaboratory Tests: Laboratory tests have been ordered, with results reviewed and considered in themedical decision making process.PROGRESS AND PROCEDURESLaceration Repair: Location: right forearm. Length: 4 cm. Complexity: simple (local anesthesia usedand stapled).Wound depth/shape- subcutaneous. Distal neuro/vascular/tendon status normal. Local anesthesiaprovided using 1% lidocaine. Prepped with Betadine. Wound explored, cleansed, irrigated and examinedto the base in bloodless field. Closure of skin: (6 aries). Post- procedure: he is stable and there are nocomplications. Bleeding is controlled and neuro-vascular status is intact distal to the wound. Dressingapplied. Tetanus immunization given. Estimated blood loss: 6 mL.Laceration Repair #2: Location: right forearm. Length: cm. Complexity: simple (local anesthesia use dand stapled).Wound depth/shape- subcutaneous. Distal neuro/vascular/tendon status normal. Local anesthesiaprovided using 1% lidocaine. Prepped with Betadine. Wound explored and cleansed. Closure of skin:(4 aries). Post- procedure: he is stable and there are no complications. Bleeding is controlled andneuro-vascular status is intact distal to the wound. Dressing applied. Tetanus immunization given.Estimated blood loss: 4 mL. Course of Care: :Nov 13 2019. Patient is stable. Symptoms better. :Nov 13 2019. R forearm wounds cleaned with saline, sterilized with iodine, cauterized, anesthetized with 1% lido. and closed with aries. Pt. tolerated this well. Smaller superficial lacs, were not closed, but were dressed. Disposition: Discharged home in good and improved condition. Condition: good.CLINICAL IMPRESSION Multiple deep lacerations to the right forearm. No foreign body present or cellulitis. Treatment of laceration not delayed. 3 Clinical Report - Physicians/Mid Levels [facility] Emergency Department [address] [place] [address] Phone #: [phone] 11/13/2019 00:38 [id number] Sex: [facility] : 1995 Age: 24y Multiple deep lacerations to the right forearm. (4cm and 2cm lacerations down to muscle.). No foreign body present or cellulitis. Treatment of laceration not delayed.INSTRUCTIONS Protect wound and keep wound area clean. Change dressing twice daily. You may wash wounds briefly, then dry. Apply neosporin twice daily. [place] should be removed in fourteen days. Do not work today, tomorrow. Warnings: TETANUS: You were given a tetanus shot during your visit. Make a note for future reference. GENERAL WARNINGS: Return or contact your physician immediately if your condition worsens or changes unexpectedly, if not improving as expected, or if other problems arise. Prescription Medications: Keflex 500 mg capsule Take 1 capsule every eight hours for 10 days -- To prevent wound infection. Dispense 30 capsule. Refills: 0. Substitution permitted. [facility] - [address] [place] [id number]. . ibuprofen 800 mg tablet Take 1 tablet every eight hours as needed for 10 days -- for pain or fever. Dispense 30 tablet. Refills: 0. Substitution permitted. [facility] - [address] [place], [place] [id number]. Phone: . Neosporin + Pain Relief 3.5 mg-10,000 unit-10 mg/gram topical cream Apply 1 a small amount twice a day for 10 days -- To prevent wound infection. Dispense 1 tube. Refills: 0. Substitution permitted. [facility] - [address] [place], [place] [id number]. . Follow-up: Follow up with your doctor in two weeks even if well and for staple removal. Call for an appointment. Reason for referral: evaluation, treatment and Lacerations to R forearm. Understanding of the discharge instructions verbalized by patient.(Electronically signed by Juan Miguel Ruiz, Physician 11/14/2019 16:01) 4Clinical Report - Physicians/Mid [facility] Emergency Department [address] [place] [address] Phone #: [phone] 11/13/2019 00:38 [id number] Sex: M : 1995 Age: 24y Name Value Range Interpretation Code Description Data Fouzia rce(s) Supporting Document(s) Procedure Vital Signs ID Date Data Source UNK Name Value Range Interpretation Code Description Data Source(s) Body surface area Derived from formula 2.36 m2 2.36 m2 [facility] ([facility]) Body weight 119.297 kg 119.297 [facility] [place] body weight 166 [lb_av] 166 [lb_av] [facility] ([facility]) Body mass index (BMI) [Ratio] 37.2 kg/m2 37.2 k g/m2 [facility] ([facility]) Body weight 263.00 [lb_av] 263.00 [lb_av] [facility] ([facility]) Body height 70.5 [in_i] 70.5 [in_i] [facility] ([facility]) 5'10.50" Body temperature 98.5 [degF] 98.5 [degF] [facility] ([facility]) Body surface area Derived from formula 2.36 m2 2.36 m2 [facility] Body weight 119.524 kg 119.524 kg [facility] ([facility]) [place] body weight 166 [lb_av] 166 [lb_av] [facility] ([facility]) Body mass index (BMI) [Ratio] 37.3 kg/m2 37.3 k g/m2 [facility] Body weight 263.50 [lb_av] 263.50 [lb_av] [facility] ([facility]) Body height 70.5 [in_i] 70.5 [in_i] [facility] ([facility]) 5'10.50" Body temperature 96.0 [degF] 96.0 [degF] [facility] ([facility]) Body surface area Derived from formula 2.09 m2 2.09 m2 [facility] Body weight 90.720 kg 90.720 kg [facility] ([facility]) [place] body weight 166 [lb_av] 166 [lb_av] [facility] ([facility]) Body mass index (BMI) [Ratio] 28.7 kg/m2 28.7 k g/m2 [facility] ([facility]) Body weight 200.00 [lb_av] 200.00 [lb_av] [facility] ([facility]) Body height 70 [in_i] 70 [in_i] [facility] ([facility]) 5'10" Body temperature 96.9 [degF] 96.9 [degF] [facility] ([facility]) Body mass index (BMI) [Ratio] 30.7 kg/m2 30.7 k g/m2 [facility] ([facility]) Body weight 220.00 [lb_av] 220.00 [lb_av] [facility] ([facility]) Body height 71 [in_i] 71 [in_i] [facility] ([facility]) 5'11" Body temperature 95.7 [degF] 95.7 [degF] [facility] ([facility]) Diastolic blood pressure 84 mm[Hg] 84 mm[Hg] [facility] ([facility]) Systolic blood pressure 138 mm[Hg] 138 mm[Hg] [facility] ([facility], [facility]) Body mass index (BMI) [Ratio] 31.6 kg/m2 31.6 k g/m2 [facility] ([facility], [facility]) Body height 70 [in_i] 70 [in_i] [facility] ([facility], [facility]) 5'10" Body weight 220.00 [lb_av] 220.00 [lb_av] [facility] T ([facility], [facility]) Body temperature 97.3 [degF] 97.3 [degF] [facility] ([facility]) Oxygen saturation in Arterial blood by Pulse oximetry 97 % 97 % [facility] ([facility], [facility]) Respiratory rate 16 /min 16 /min [facility] ( [facility], [facility]) Heart rate 102 /min 102 /min [facility] ([facility], [facility]) Body mass index (BMI) [Ratio] 34.4 kg/m2 34.4 k g/m2 [facility] ([facility]) Body weight 240.00 [lb_av] 240.00 [lb_av] [facility] ([facility]) Body height 70 [in_i] 70 [in_i] [facility] ([facility]) 5'10" Body temperature 97.0 [degF] 97.0 [degF] [facility] ([facility]) Body mass index (BMI) [Ratio] 35.2 kg/m2 35.2 k g/m2 [facility] ([facility] Oxygen saturation in Arterial blood by Pulse oximetry 98 % 98 % [facility] ([facility] Body weight 245.56 [lb_av] 245.56 [lb_av] [facility] T ([facility] Body height 70.0 [in_i] 70.0 [in_i] [facility] ([facility] 5'10" Respiratory rate 16 /min 16 /min [facility] ( [facility] Body temperature 95.5 [degF] 95.5 [degF] [facility] ([facility] Heart rate 94 /min 94 /min [facility] ([facility] Diastolic blood pressure 95 mm[Hg] 95 mm[Hg] [facility] ([facility] Systolic blood pressure 162 mm[Hg] 162 mm[Hg] M [facility] ([facility] Diastolic blood pressure 93 mm[Hg] 93 mm[Hg] [facility] ([facility] Systolic blood pressure 165 mm[Hg] 165 mm[Hg] M [facility] ([facility] Body mass index (BMI) [Ratio] 34.5 kg/m2 34.5 k g/m2 [facility] ([facility] Oxygen saturation in Arterial blood by Pulse oximetry 97 % 97 % [facility] ([facility] Body weight 240.38 [lb_av] 240.38 [lb_av] [facility] T ([facility] Body height 70.0 [in_i] 70.0 [in_i] [facility] ([facility] 5'10" Respiratory rate 17 /min 17 /min [facility] ( [facility] Body temperature 98.6 [degF] 98.6 [degF] [facility] ([facility] Heart rate 89 /min 89 /min [facility] ([facility] Diastolic blood pressure 89 mm[Hg] 89 mm[Hg] [facility] ([facility] Systolic blood pressure 138 mm[Hg] 138 mm[Hg] M [facility] ([facility] Diastolic blood pressure 95 mm[Hg] 95 mm[Hg] [facility] ([facility] Systolic blood pressure 155 mm[Hg] 155 mm[Hg] M [facility] ([facility]
[2020-08-09] MEDS ORDERED: ROCURONIUM BROMIDE 50 MG/5 ML VIAL As Ordered ONE ×4 (10:43→15:36)
[2020-08-09] MEDS ORDERED: HYDROmorphone HCL 2 MG/ML 1ML VIAL (J1170) As Ordered ONE (10:43)
[2020-08-09] MEDS ORDERED: KETOROLAC 60MG 2ML VIAL As Ordered ONE (10:43)
[2020-08-09] MEDS ORDERED: dexameTHASONE 4 MG/ML 1ML VIAL (J1100 PER 1MG) As Ordered ONE (10:43)
[2020-08-09] MEDS ORDERED: MIDAZOLAM INJ 2MG/2ML VIAL (J2250 PER 1MG) As Ordered ONE (10:43)
[2020-08-09] MEDS ORDERED: ACETAMINOPHEN 1000MG 100ML IV BTL (OFIRMEV) (J0131 PER 10MG) As Ordered ONE (10:43)
[2020-08-09] MEDS ORDERED: propofoL 200 MG/20 ML VIAL As Ordered ONE (10:43)
[2020-08-09] MEDS ORDERED: ONDANSETRON 4MG/2ML VIAL As Ordered ONE ×2 (10:43→16:34)
[2020-08-09] MEDS ORDERED: SUGAMMADEX SODIUM 500 MG/5 ML VIAL (BRIDION) As Ordered ONE (10:43)
[2020-08-09] MEDS ORDERED: LIDOCAINE 2% 100MG/5ML SDV (FOR ANES.) As Ordered ONE (10:43)
[2020-08-09] MEDS ORDERED: fentaNYL 100 MCG/2 ML INJECTION (J3010) As Ordered ONE (10:44)
[2020-08-09] MEDS ORDERED: EPINEPHrine INJ 1 MG/ML 1ML AMP XX ONE ×2 (10:45→12:20)
[2020-08-09] MEDS ORDERED: BUPIVACAINE HCL 0.5% 30 ML VIAL XX ONE ×3 (10:45→12:25)
[2020-08-09] MEDS ORDERED: LIDOCAINE 1% MDV 20ML VIAL XX ONE (10:45)
[2020-08-09] MEDS ORDERED: dexameTHASONE 10MG/1ML VIAL PRES.FREE (J1100 PER 1MG) XX ONE ×2 (10:45→12:20)
[2020-08-09] MEDS ORDERED: ROPIvacaine 0.5% 30ML INJECTION (J2795 PER 1MG) As Ordered ONE (12:05)
[2020-08-09] MEDS ORDERED: LABETALOL 100MG/20ML VIAL As Ordered ONE (13:54)
[2020-08-09] MEDS ORDERED: oxyCODONE 5MG TAB As Ordered ONE (16:34)
[2020-08-09] MEDS: fentaNYL 100 MCG/2 ML INJECTION (J3010) IV PRN ×4 (16:37→16:56)
[2020-08-09] MEDS: oxyCODONE 5MG TAB PO PRN ×2 (16:37→17:09)
[2020-08-09] MEDS ORDERED: ONDANSETRON 4MG/2ML VIAL IV PRN ×2 (16:40→16:45)
[2020-08-09] MEDS ORDERED: LR 1,000 ML IV SCH ×2 (16:40→16:45)
[2020-08-09] MEDS ORDERED: METOCLOPRAMIDE INJ 10MG/2ML VIAL (J2765 PER 1) IV PRN (16:40)
[2020-08-09] MEDS ORDERED: PERCOCET 5MG/325MG TAB PO PRN (16:45)
[2020-08-09] MEDS ORDERED: ACETAMINOPHEN TAB 650MG DOSE (2X325MG) PO PRN (16:45)
[2020-08-09] MEDS ORDERED: LABETALOL 100MG/20ML VIAL IV PRN (16:45)
[2020-08-09] MEDS ORDERED: MORPHINE 2 MG/ML 1ML VIAL (J2270) IV PRN (16:45)
[2020-08-09] MEDS ORDERED: HYDROMORPHONE HCL 0.5 MG/ 0.5 ML SYRINGE (J1170 PER 1) As Ordered ONE ×3 (16:54→17:29)
--- NOTE | 2020-08-09 17:10 | REP ---
INDICATION: RIGHT KNEE ARTROSCOPY. COMPARISON: None. TECHNIQUE: Single fluoroscopic spot radiograph. 80 seconds of fluoroscopy time is reported. FINDINGS: A single last image hold fluoroscopically obtained spot radiograph of the right knee documents operative manipulation. IMPRESSION: Procedural imaging. <Electronically signed by Khari Horan > 08/09/20 [id number]
[2020-08-09] MEDS: HYDROMORPHONE HCL 0.5 MG/ 0.5 ML SYRINGE (J1170 PER 1) IV PRN ×4 (17:12→17:45)
[2020-08-09] MEDS ORDERED: METOCLOPRAMIDE INJ 10MG/2ML VIAL (J2765 PER 1) As Ordered ONE (18:08)
[2020-08-09 19:15] VITALS: BP 142/94
--- NOTE | 2020-08-10 16:28 | RO ---
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 PLANNED PROCEDURE: Right knee hamstrings autograft, ACL reconstruction, and medial patellofemoral ligament allograft reconstruction. PROCEDURE PERFORMED: Right knee hamstrings autograft, ACL reconstruction, and medial patellofemoral ligament allograft reconstruction. SURGEON: Micky Medrano MD. PRODUCT ANALYST: Mukul Monterroso MD. TYPE OF ANESTHETIC: General anesthetic with preoperative block. OPERATIVE PREAMBLE: The patient is a 25-year-old man who had an ACL deficient knee. He subsequently had another fall and sustained a patellofemoral dislocation with tearing of the medial retinaculum and instability of the patellofemoral joint. We decided to go ahead with reconstruction of both ligaments concomitantly. Discussed the pros, cons, risks, and benefits. Patient had a preoperative blocked. Marked the right lower extremity and proceeded to surgery. OPERATIVE REPORT: Patient was brought to the operating theater. Placed supine on the operating table. All bony prominences were padded. Tourniquet was applied to the right thigh and appropriately padded. Stress positioner was used for the patient's right side. SCDs were used on the down leg. Two rounds of IV Ancef were administered prior to the start of the case. General anesthesia was induced. Leg was prepped and draped in the usual sterile fashion with chlorhexidine based prep solution allowing over three minutes of prep solution drying time prior to draping. Preoperative time out was performed confirming the correct site, patient, and surgery. Began by elevating the limb and inflating the tourniquet to 300 mmHg. Made standard anterolateral and anteromedial arthroscopy portals. Examined the full intraarticular extent of the knee. It was obviously ACL deficient. PCL appeared normal. There was small chondral scuffing on the medial aspect of the patella facet, a small 1 x 0.5 cm. Gently debrided this. Trochlea appeared normal. Medial and lateral gutters were normal. Cartilage in the medial and lateral compartments were normal. No obvious meniscus tears on either side. I debrided the stump of the ACL. I identified the back wall for the proposed ACL reconstruction. Made a small anteromedial incision approximately an inch long over the anteromedial tibia. Carried the dissection down through skin and subcutaneous tissue and achieved meticulous hemostasis. Incised the sartorial fascia. I identified the hamstrings tendons. I released any bands. I used the open ended tendon harvester to clip the tendons off proximally, deliver them through the wound, and excise them sharply off the anteromedial tibia. MCL was protected throughout. Wet gauze was placed in the incision. Then took the tendons to the back table. Debrided away any soft tissue or muscular attachments. Cut the tendons off at 230 mm long. I split them apart and them flipped them end to end. I used a #2 FiberWire on both ends for a length of 1 inch to whipstitch the tendons up and down to create two suture limbs at each end. I then attached one end to the Arthrex TightRope button and then looped the other end through the ABS button loop suture system and then tripled the graft over between the other two limbs and tying it over top itself as well as the ABS button loop system. I then used a locking loop configuration 1 and 2 cm from each end sequentially tensioning the tendon and dunking in each free end. The ACL graft was placed on tension and surrounded by wet __ sponge. This was sized to be 7 cm long and 8.5 mm in diameter. I used an inside-out localization with retrograde FlipCutter 3 drilling for 8.5 mm on both the tibia as well as the femur side. Femur I had drilled towards the back wall in the typical ACL attachment for a depth of approximately 2.5 to 3 cm. Through this, I drilled the full length of the tunnel which was approximately 6.5 cm. On the femur side, it was about 4 cm long full tendon length. Bone dust from both tunnels was then gently debrided using shaving instrument. Passed sutures from both tunnels and then passed the ACL graft button first up on the femoral side, flipped the button, and pulled on the tightening sutures to pass the femoral side of the graft up into the femur for a length of approximately 2.5 cm. I then used a passing stitch to pass the femoral side sutures out. We used a slightly larger Arthrex button ____ sutures as well as backup sutures and tensioned those to 30 degrees. No impingement. Graft was stable and solid with a stable endpoint at 0 and 30 degrees. No pivot shift. Sutures were cut short on both sides. Wound was thoroughly irrigated. Next, I turned my attention to the MPFL reconstruction. I used allograft semitendinosus tendon for a length of 240 mm and 6 mm in diameter. I used the Arthrex BioComposite MPFL reconstruction kit with interference screws. I used an anteromedial incision centered over the medial patellar facet and carried the dissection down through skin and subcutaneous tissue and achieved meticulous hemostasis. I ensured to stay extracapsular. I passed the two pins down to appropriate depth colinear at the superior margin of the patella as well as at the equator ensuring not to stay too superficial for placement of fluoroscopy. I over drilled these. I was able to place the most distal 3.9 mm BioComposite SwiveLock. However, the proximal one achieved poor fixation and pulled out slightly so I did replace this with a 4.5 mm BioComposite SwiveLock. These both achieved good solid bite from the patella in appropriate locations. I then tunneled the tendon extracapsular underneath the VMO to Schottle's point. I used the attached radiolucent guide to identify Schottle's point in the typical fashion. I then passed the Beath pin aiming anterior and proximally from Schottle's point. I then made a small 1 inch incision at that point and carried dissection down through skin and subcutaneous tissue down to bone. Then used the 7 mm drill to a depth of approximately 5 cm. Tendon was then passed using a passing suture with a locking loop configuration, a luggage type stitch using #2 FiberWire into the tunnel at 30 degrees. Attempted to use the included 6 x 20 mm BioComposite interference screw. However, again, this achieved unfortunately poor bite, and the ligament pulled out of the tunnel so this was left in place, and the sutures tied over a button on the lateral cortex through a separate lateral incision and confirmed placement with fluoroscopy. Appropriate tension was achieved at 30 degrees of flexion with patella still able to translate to the lateral aspect of the distal femur with very minimal tension and full extension and full flexion beyond 90 degrees. Wounds were thoroughly irrigated. Subcutaneous tissue closed with interrupted 2-0 Vicryl sutures and skin with running 3-0 Monocryl. Steri-Strips were applied after the wounds were cleaned with wet and dry dressing. Adaptic, 4 x 8 gauze, ABD dressing, and then Ming bandage was placed over top. The patient was awoken from a general anesthetic, transferred off the operating table, and taken to the Postanesthetic Care Unit in stable condition. All sponge, needle, and instrument counts were correct. No complications. Estimated blood loss 150 mL. PLAN: Plan for patient is to be range of motion as tolerated. Will be weightbearing as tolerated with crutches for the first two weeks. Follow up in the office in two weeks' time. Will begin gentle range of motion and/or hinged knee brace and refer to physical therapy two weeks out from surgery. Prescription will be sent to the pharmacy of choice electronically.
== END 2020-08-09 19:17 | disposition home or self-care (01) ==
LOC: M SDC 09:17
PROVIDERS: ATTEND Orthopaedic Surgery Sports Medicine
DX: S83.511A Sprain of anterior cruciate ligament of right knee, initial encounter (principal); M71.21 Synovial cyst of popliteal space [Baker], right knee; M22.41 Chondromalacia patellae, right knee; E66.01 Morbid (severe) obesity due to excess calories; F17.210 Nicotine dependence, cigarettes, uncomplicated; R06.83 Snoring; X58.XXXA Exposure to other specified factors, initial encounter; Y92.9 Unspecified place or not applicable; Y93.9 Activity, unspecified; Y99.9 Unspecified external cause status
CPT/HCPCS: 27429; 76000; C1713; C1762; J0131; J0171; J0690; J1100; J1170; J1885; J2250; J2405; J2765; J2795; J3010

== ENCOUNTER → 2020-09-13 | Outpatient (RCR) | payer OTHER ==
[~2020-09-13] MED LIST changes: -LIDOCAINE 1% MDV 20ML VIAL SQ PRN; -LR 1,000 ML IV ONE; -MIDAZOLAM INJ 2MG/2ML VIAL (J2250 PER 1MG) IV PRN; -ceFAZolin SOD 2 GM in IV 1 EA IV ONE; -fentaNYL 100 MCG/2 ML INJECTION (J3010) IV PRN
== END ==
LOC: M PT 09-04 15:15
PROVIDERS: ATTEND Orthopaedic Surgery Sports Medicine
DX: Z48.89 Encounter for other specified surgical aftercare (principal); M23.51 Chronic instability of knee, right knee; S83.004D Unspecified dislocation of right patella, subsequent encounter

== ENCOUNTER 2020-10-11 22:20 | Emergency (ER) | payer OTHER ==
[~2020-10-11] VITALS: Ht 177.8 cm; Wt 120.6 kg
[2020-10-11 22:22] VITALS: BP 139/83
[2020-10-11] MEDS ORDERED: OXYCODONE/APAP 5MG/325MG(BULK FOR ED) 1 TABLET PO ONE (23:25)
[2020-10-11] MEDS ORDERED: MORPHINE 4 MG/ML 1ML VIAL/SYRINGE (J2270) IV PRN (23:30)
[2020-10-11] MEDS ORDERED: ONDANSETRON 4MG/2ML VIAL IV ONE (23:30)
== END 2020-10-12 00:26 | disposition home or self-care (01) ==
LOC: M ED 22:20
DX: T23.202A Burn of second degree of left hand, unspecified site, initial encounter (principal); T31.0 Burns involving less than 10% of body surface; X10.2XXA Contact with fats and cooking oils, initial encounter; Y92.9 Unspecified place or not applicable; Y93.9 Activity, unspecified; Y99.9 Unspecified external cause status
CPT/HCPCS: 16000; 96374; 96375; 99284; J2270; J2405

== ENCOUNTER 2020-10-12 15:15 | Outpatient (RCR) | payer OTHER | END 2020-10-13 | LOC: M PT 15:15 | PROVIDERS: ATTEND Orthopaedic Surgery Sports Medicine | DX: S83.004D Unspecified dislocation of right patella, subsequent encounter (principal); X58.XXXD Exposure to other specified factors, subsequent encounter; M23.51 Chronic instability of knee, right knee; Z48.89 Encounter for other specified surgical aftercare ==

== ENCOUNTER 2020-11-08 15:15 | Outpatient (RCR) | payer OTHER | END 2020-11-13 | LOC: M PT 15:15 | PROVIDERS: ATTEND Orthopaedic Surgery Sports Medicine | DX: Z47.89 Encounter for other orthopedic aftercare (principal) ==

== ENCOUNTER 2020-12-07 15:13 | Outpatient (RCR) | payer OTHER | END 2020-12-13 | LOC: M PT 15:13 | PROVIDERS: ATTEND Orthopaedic Surgery Sports Medicine | DX: Z47.89 Encounter for other orthopedic aftercare (principal); S83.004D Unspecified dislocation of right patella, subsequent encounter; X58.XXXD Exposure to other specified factors, subsequent encounter; M23.51 Chronic instability of knee, right knee ==

== ENCOUNTER 2021-03-12 09:30 | Outpatient (RCR) | payer OTHER | END 2021-03-15 | LOC: M PT 09:30 | PROVIDERS: ATTEND Orthopaedic Surgery Sports Medicine | DX: Z47.89 Encounter for other orthopedic aftercare (principal) ==

== ENCOUNTER 2021-04-04 08:00 | Outpatient (RCR) | payer OTHER | END 2021-04-15 | LOC: M PT 08:00 | PROVIDERS: ATTEND Orthopaedic Surgery Sports Medicine | DX: Z47.89 Encounter for other orthopedic aftercare (principal); S83.004D Unspecified dislocation of right patella, subsequent encounter; X58.XXXD Exposure to other specified factors, subsequent encounter ==

== ENCOUNTER 2021-04-26 13:52 | Outpatient (RCR) | payer OTHER | END 2021-05-15 | LOC: M PT 13:52 | PROVIDERS: ATTEND Orthopaedic Surgery Sports Medicine | DX: Z47.89 Encounter for other orthopedic aftercare (principal); S83.004D Unspecified dislocation of right patella, subsequent encounter; X58.XXXD Exposure to other specified factors, subsequent encounter ==